=== PATIENT | male | born 1965 | race Caucasian/White ===

== ENCOUNTER 2019-10-01 06:57 | Outpatient (CLI) | payer BC, SELFPAY ==
[2019-10-01 07:14] LABS: Basophils Absolute Auto 0.06 K/mm3 (0.00-0.10); Basophils Percent Auto 0.8 % (0.0-1.0); Eosinophils Absolute Auto 0.41 K/mm3 (0.02-0.50); Eosinophils Percent Auto 5.8 % (1.0-6.0); Hematocrit 48.6 % (40.0-54.0); Hemoglobin 16.8 g/dL (14.0-18.0); Immature Granulocyte Absolute 0.04 K/mm3 (0.00-0.00); Immature Granulocyte Percent A 0.6 % (0.0-0.0); Lymphocytes Absolute Auto 1.87 K/mm3 (1.10-4.50); Lymphocytes Percent Auto 26.4 % (18.0-42.0); Mean Corpuscular HGB Conc 34.6 g/dL (32.0-36.0); Mean Corpuscular Hemoglobin 31.2 pg (27.0-31.0); Mean Corpuscular Volume 90.2 fL (78.0-102.0); Mean Platelet Volume 9.9 fl (8.7-11.0); Monocytes Absolute Auto 0.69 K/mm3 (0.10-0.90); Monocytes Percent Auto 9.8 % (2.0-11.0); Neutrophils Percent Auto 56.6 % (50.0-70.0); Platelet Count Result 209 K/mm3 (150-420); Red Blood Count 5.39 M/mm3 (4.70-6.10); Red Cell Distribution Width 12.8 % (11.6-14.4); White Blood Count 7.1 K/mm3 (4.8-10.8)
[2019-10-01 08:45] LABS: Alanine Aminotransferase 114 U/L (16-63); Albumin Level 3.9 g/dL (3.4-5.0); Alkaline Phosphatase 84 U/L (46-116); Anion Gap 11.5 mmol/L (7-16); Aspartate Amino Transferase 50 U/L (15-37); Bilirubin,Total 0.4 mg/dL (0.00-1.00); Blood Urea Nitrogen 21 mg/dL (7-18); Calcium 9.2 mg/dL (8.5-10.1); Carbon Dioxide 28 mmol/L (21-32); Chloride 105 mmol/L (98-108); Estimated Glomerular Filt Rate > 60; Glucose 154 mg/dL (70-99); Osmolality Calculated 296 mOsm/kg (285-295); Potassium 4.5 mmol/L (3.5-5.1); Sodium 140 mmol/L (136-145); Total Protein 7.3 g/dL (6.4-8.2); Uric Acid 7.8 mg/dL (3.5-7.2); Vitamin B12 482 pg/mL (193-986)
== END 2019-10-01 06:58 | disposition home or self-care (01) ==
LOC: CHSLAB 07:00
PROVIDERS: PCP Family Medicine; Visit Provider Family Medicine
DX: M10.9 Gout, unspecified (principal); E53.8 Deficiency of other specified B group vitamins; I10 Essential (primary) hypertension
CPT/HCPCS: 36415; 80053; 82607; 84550; 85025

== ENCOUNTER 2019-12-23 09:10 | Outpatient (CLI) | payer BC, SELFPAY ==
[2019-12-23 09:25] LABS: Basophils Absolute Auto 0.06 K/mm3 (0.00-0.10); Basophils Percent Auto 0.8 % (0.0-1.0); Eosinophils Absolute Auto 0.36 K/mm3 (0.02-0.50); Eosinophils Percent Auto 4.7 % (1.0-6.0); Hemoglobin 16.8 g/dL (14.0-18.0); Immature Granulocyte Absolute 0.04 K/mm3 (0.00-0.00); Immature Granulocyte Percent A 0.5 % (0.0-0.0); Lymphocytes Absolute Auto 1.83 K/mm3 (1.10-4.50); Lymphocytes Percent Auto 24.1 % (18.0-42.0); Mean Corpuscular HGB Conc 33.6 g/dL (32.0-36.0); Mean Corpuscular Hemoglobin 30.7 pg (27.0-31.0); Mean Corpuscular Volume 91.4 fL (78.0-102.0); Mean Platelet Volume 9.9 fl (8.7-11.0); Monocytes Absolute Auto 0.56 K/mm3 (0.10-0.90); Monocytes Percent Auto 7.4 % (2.0-11.0); Neutrophils Absolute Auto 4.8 K/mm3 (1.7-7.2); Neutrophils Percent Auto 62.5 % (50.0-70.0); Platelet Count Result 209 K/mm3 (150-420); Red Blood Count 5.47 M/mm3 (4.70-6.10); Red Cell Distribution Width 12.7 % (11.6-14.4); White Blood Count 7.6 K/mm3 (4.8-10.8)
[2019-12-23 09:37] LABS: Creatinine Urine 161.92 mg/dL (40-278); Microalbumin Urine Random < 13.0 mg/L
[2019-12-23 13:44] LABS: Anion Gap 8 mmol/L (8-16); Blood Urea Nitrogen 16 mg/dL (7-18); Calcium 9.1 mg/dL (8.5-10.1); Carbon Dioxide 28 mmol/L (21-32); Chloride 103 mmol/L (98-108); Estimated Glomerular Filt Rate > 60; Glucose 129 mg/dL (70-99); Osmolality Calculated 291 mOsm/kg (285-295); Potassium 4.8 mmol/L (3.5-5.1); Prostate Specific Antigen 1.2 ng/mL (< OR = 4.0); Sodium 139 mmol/L (136-145); Thyroid Stimulating Hormone 2.07 uIU/mL (0.36-3.74); Uric Acid 7.8 mg/dL (3.5-7.2)
== END 2019-12-23 09:11 | disposition home or self-care (01) ==
PROVIDERS: PCP Family Medicine; Visit Provider Family Medicine
DX: M10.9 Gout, unspecified (principal); I10 Essential (primary) hypertension; Z12.5 Encounter for screening for malignant neoplasm of prostate
CPT/HCPCS: 36415; 80048; 82043; 84153; 84443; 84550; 85025; G0103

== ENCOUNTER 2020-02-14 16:12 | Outpatient (CLI) | payer BC, SELFPAY ==
--- NOTE | ~2020-02-14 | CT_ITS ---
EXAMINATION: CT chest wo con DATE: 02/14/2020 16:42 INDICATION: Solitary pulmonary nodule f/u pulmonary nodule TECHNIQUE: Computed tomography (CT) of the chest was performed without intravenous contrast. Addition al 3D reconstructions utilizing coronal maximum intensity projection (MIP) were performed. Automated exposure control and iterative reconstruction technique were employed. The dose-length product was 61 7.15 mGy-cm. COMPARISON: 02/07/2019 and 04/02/2016 FINDINGS: Mild to moderate emphysema. No significant interval change in a diffuse pattern of mosaic attenuation with few scattered relatively lucent regions of likely air trapping and more widespread groundglass opacity and fine reticulonodular pattern. This includes numerous tiny nodules with perilymphatic dist ribution along the fissures and pleura. There are few scattered linear bands of discoid atelectasis/s carring. There is also diffuse bronchial wall thickening. No pleural effusion. Heart size is normal. Atherosclerotic coronary artery calcific calcification is. No pericardial effusion. Thoracic aorta is normal in caliber. Enlargement of the central pulmonary arteries consistent with pulmonary arterial hypertension. No significant interval change in chronic mild mediastinal lymphadenopathy. Diffuse hep atic steatosis. Chronic mild anterior wedging and Schmorl's nodes at multiple mid to lower thoracic v ertebral bodies. IMPRESSION: 1. Mild to moderate emphysema with stable appearance of superimposed diffuse lung disease with fine r eticulonodular pattern which would be consistent with provided history of sarcoidosis. 2. Stable appearance of chronic mild mediastinal lymphadenopathy also likely related to sarcoidosis. 3. Enlargement of the central pulmonary arteries consistent with pulmonary arterial hypertension. 4. Diffuse hepatic steatosis. Reviewed, dictated and finalized at location A. T SPECIALIST IMPRESSION: 1. Mild to moderate emphysema with stable appearance of superimposed diffuse hilda ng disease with fine reticulonodular pattern which would be consistent with pro vided history of sarcoidosis. 2. Stable appearance of chronic mild mediastinal lymphadenopathy also likely re lated to sarcoidosis. 3. Enlargement of the central pulmonary arteries consistent with pulmonary erick rial hypertension. 4. Diffuse hepatic steatosis.
== END 2020-02-14 16:13 | disposition home or self-care (01) ==
PROVIDERS: PCP Family Medicine; Visit Provider Internal Medicine Pulmonary Disease
DX: R91.1 Solitary pulmonary nodule (principal)
CPT/HCPCS: 71250

== ENCOUNTER 2020-04-16 11:25 | Outpatient (CLI) | payer BC, SELFPAY ==
--- NOTE | ~2020-04-16 | XR_ITS ---
EXAMINATION: XR knee RT 3V DATE: 04/16/2020 11:59 INDICATION: Right knee pain. TECHNIQUE: 3 views of right knee were obtained. COMPARISON: Right knee radiographs 11/15/2013 FINDINGS: Bone alignment is normal. No fracture. There is sclerosis in femoral diaphysis from old ins trumentation. There is mild tricompartmental osteoarthritis. There is a moderate-sized knee joint eff usion. IMPRESSION: 1. Mild right knee osteoarthritis. 2. Moderate-sized right knee joint effusion. Reviewed, dictated and finalized at location A. RAL PRE ARRANGEMENT COUNSELOR
[2020-04-16 11:39] LABS: Basophils Absolute Auto 0.04 K/mm3 (0.00-0.10); Basophils Percent Auto 0.4 % (0.0-1.0); Eosinophils Absolute Auto 0.31 K/mm3 (0.02-0.50); Eosinophils Percent Auto 3.2 % (1.0-6.0); Hematocrit 48.7 % (40.0-54.0); Hemoglobin 16.5 g/dL (14.0-18.0); Immature Granulocyte Absolute 0.05 K/mm3 (0.00-0.00); Immature Granulocyte Percent A 0.5 % (0.0-0.0); Lymphocytes Absolute Auto 1.57 K/mm3 (1.10-4.50); Mean Corpuscular HGB Conc 33.9 g/dL (32.0-36.0); Mean Corpuscular Hemoglobin 30.8 pg (27.0-31.0); Mean Corpuscular Volume 90.9 fL (78.0-102.0); Mean Platelet Volume 9.7 fl (8.7-11.0); Monocytes Absolute Auto 0.84 K/mm3 (0.10-0.90); Monocytes Percent Auto 8.6 % (2.0-11.0); Neutrophils Percent Auto 71.3 % (50.0-70.0); Platelet Count Result 242 K/mm3 (150-420); Red Blood Count 5.36 M/mm3 (4.70-6.10); Red Cell Distribution Width 13.1 % (11.6-14.4); White Blood Count 9.8 K/mm3 (4.8-10.8)
[2020-04-16 12:43] LABS: Anion Gap 9 mmol/L (8-16); Blood Urea Nitrogen 15 mg/dL (7-18); Calcium 8.9 mg/dL (8.5-10.1); Carbon Dioxide 29 mmol/L (21-32); Chloride 101 mmol/L (98-108); Estimated Glomerular Filt Rate > 60; Glucose 150 mg/dL (70-99); Osmolality Calculated 291 mOsm/kg (285-295); Potassium 4.4 mmol/L (3.5-5.1); Sodium 139 mmol/L (136-145); Uric Acid 6.6 mg/dL (3.5-7.2)
== END 2020-04-16 11:26 | disposition home or self-care (01) ==
LOC: CHSLAB 11:27
PROVIDERS: PCP Family Medicine; Visit Provider Family Medicine
DX: M25.561 Pain in right knee (principal)
CPT/HCPCS: 36415; 73562; 80048; 84550; 85025

== ENCOUNTER 2020-04-18 07:48 | Outpatient (RCR) | payer BC, SELFPAY ==
--- NOTE | 2020-04-18 07:32 | PTOPEVAL ---
Thank you for referring Vladimir Louis to [facility].? The patient is scheduled to be seen for therapy? __3__x/week for 12 visits. Please review, sign, date and return this plan of care RUTH. I agree with and certify that the following plan of care is medically necessary. Referring Physician Date Admitting Provider: Attending Provider: Kip Martel MD Referring Provider: *PT Outpatient Evaluation Start: 04/18/20 06:59 Freq: Status: Active Protocol: Document 04/18/20 06:59 DILAN (Rec: 04/18/20 07:32 DILAN [email or web address]) Therapy Assessment Status Assessment Status Assessment Status Evaluation Evaluation Information Problem Diagnosis right knee pain Onset 04/12/20 Subjective Information Pt. reports that he slipped on Query Text:As Reported By Patient/ the ice last week and twisted Family his knee. He states that he developed immediate pain in the knee. He reports that he waited till Thursday to see the doctor. He states that he did receive some prednisone which has helped to reduce his pain . He states that he has improved since using the medication. He describes pain in the front of the right knee. He states that pain is most notable with movement. He reports that he has some pain at night that will wake him. He reports that his goal is to reduce his right knee pain. 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
== END 2020-05-01 08:59 | disposition home or self-care (01) ==
LOC: CHSPT 07:48
PROVIDERS: PCP Family Medicine; Visit Provider Family Medicine
DX: M25.561 Pain in right knee (principal)
CPT/HCPCS: 97014; 97110; 97140; 97161; G0283

== ENCOUNTER 2020-09-29 09:54 | Outpatient (CLI) | payer BC, SELFPAY ==
[2020-09-29 10:11] LABS: Basophils Absolute Auto 0.06 K/mm3 (0.00-0.10); Basophils Percent Auto 0.8 % (0.0-1.0); Eosinophils Absolute Auto 0.32 K/mm3 (0.02-0.50); Eosinophils Percent Auto 4.2 % (1.0-6.0); Hematocrit 49.2 % (40.0-54.0); Hemoglobin 17.2 g/dL (14.0-18.0); Immature Granulocyte Absolute 0.04 K/mm3 (0.00-0.00); Immature Granulocyte Percent A 0.5 % (0.0-0.0); Lymphocytes Absolute Auto 1.41 K/mm3 (1.10-4.50); Lymphocytes Percent Auto 18.3 % (18.0-42.0); Mean Corpuscular Hemoglobin 30.9 pg (27.0-31.0); Mean Corpuscular Volume 88.5 fL (78.0-102.0); Mean Platelet Volume 10.2 fl (8.7-11.0); Monocytes Absolute Auto 0.53 K/mm3 (0.10-0.90); Monocytes Percent Auto 6.9 % (2.0-11.0); Neutrophils Absolute Auto 5.4 K/mm3 (1.7-7.2); Neutrophils Percent Auto 69.3 % (50.0-70.0); Platelet Count Result 216 K/mm3 (150-420); Red Blood Count 5.56 M/mm3 (4.70-6.10); Red Cell Distribution Width 12.1 % (11.6-14.4); White Blood Count 7.7 K/mm3 (4.8-10.8)
[2020-09-29 10:12] LABS: Add Urine Microscopic? YES; Appearance Urine Clear (Clear); Bilirubin Urine Negative (Negative); Blood Urine Negative (Negative); Color Urine Light Yellow (Yellow); Glucose Urine UA 1+ (Negative); Ketones Urine Negative (Negative); Leukocyte Esterase Ur Negative (Negative); Nitrate Urine Negative (Negative); Protein Urine Trace (Negative); Specific Grav Ur 1.025 (1.010-1.020); Urobilinogen Urine 0.2 mg/dL (0.2-1.0)
[2020-09-29 10:17] LABS: Bacteria Urine None seen /hpf; Mucus Urine Few /lpf; RBC Urine None seen /hpf (0-2); Squamous Epithelial Cell Urine Rare /hpf (Few); WBC Urine None seen /hpf (0-3)
[2020-09-29 10:21] LABS: Microalbumin Urine Random 79.2 mg/L
[2020-09-29 10:22] LABS: Hemoglobin A1C 7.3 % (<5.7)
[2020-09-29 11:00] LABS: Alanine Aminotransferase 93 U/L (16-63); Albumin Level 3.9 g/dL (3.4-5.0); Alkaline Phosphatase 91 U/L (46-116); Anion Gap 9 mmol/L (8-16); Aspartate Amino Transferase 45 U/L (15-37); Bilirubin,Total 0.5 mg/dL (0.00-1.00); Blood Urea Nitrogen 18 mg/dL (7-18); Calcium 8.8 mg/dL (8.5-10.1); Carbon Dioxide 31 mmol/L (21-32); Chloride 104 mmol/L (98-108); Estimated Glomerular Filt Rate > 60; Glucose 159 mg/dL (70-99); Osmolality Calculated 302 mOsm/kg (285-295); Potassium 4.4 mmol/L (3.5-5.1); Sodium 144 mmol/L (136-145); Thyroid Stimulating Hormone 1.57 uIU/mL (0.36-3.74); Total Protein 7.2 g/dL (6.4-8.2); Uric Acid 8.4 mg/dL (3.5-7.2)
== END 2020-09-29 09:55 | disposition home or self-care (01) ==
LOC: CHSLAB 09:56
PROVIDERS: PCP Family Medicine; Visit Provider Family Medicine
DX: E13.42 Other specified diabetes mellitus with diabetic polyneuropathy (principal); I10 Essential (primary) hypertension; J44.1 Chronic obstructive pulmonary disease with (acute) exacerbation; M10.9 Gout, unspecified
CPT/HCPCS: 36415; 80053; 81001; 82043; 83036; 84443; 84550; 85025

== ENCOUNTER 2021-02-08 12:46 | Outpatient (CLI) | payer BC, SELFPAY ==
--- NOTE | ~2021-02-08 | CT_ITS ---
EXAMINATION: CT diagnostic chest wo con DATE: 02/08/2021 13:26 INDICATION: Pulmonary infiltrates. History of tobacco use. Sarcoidosis. TECHNIQUE: Computed tomography (CT) of the chest was performed without intravenous contrast. The dose -length product was 616.95 mGy-cm. Automated exposure control and iterative reconstruction technique were employed. COMPARISON: CT dated 02/14/2020 and 02/07/2019 FINDINGS: There is mediastinal and right hilar lymphadenopathy. Heart size normal. Enlarged pulmonary arteries consistent with pulmonary arterial hypertension. No significant pleural or pericardial effu alaina. Fatty infiltration of the liver. Thyroid gland is unremarkable. There is chronic interstitial l svetlana disease with focal consolidation in the right upper lobe which is not significantly changed from prior examination. There are diffuse miliary nodules in both lungs. Interstitial changes have progres sed since prior examination. No endobronchial lesions. Chronic mild anterior wedging of multiple mid and lower thoracic vertebral bodies. No acute osseous abnormality. No evidence for aortic aneurysm or dissection. No pneumothorax. IMPRESSION: 1. No significant change to chronic interstitial lung disease as well as mediastinal/right hilar lymp hadenopathy, compatible with known sarcoidosis. 2: Enlarged pulmonary arteries, consistent with pulmonary arterial hypertension. Reviewed, dictated and finalized at location A. RMATORY ATTENDANT IMPRESSION: 1. No significant change to chronic interstitial lung disease as well as medias tinal/right hilar lymphadenopathy, compatible with known sarcoidosis. 2: Enlarged pulmonary arteries, consistent with pulmonary arterial hypertension .
== END 2021-02-08 12:47 | disposition home or self-care (01) ==
LOC: CHSIMG 12:48
PROVIDERS: PCP Family Medicine; Visit Provider Internal Medicine Pulmonary Disease
DX: J84.9 Interstitial pulmonary disease, unspecified (principal); D86.0 Sarcoidosis of lung; R91.1 Solitary pulmonary nodule
CPT/HCPCS: 71250

== ENCOUNTER 2021-03-08 07:28 | Outpatient (CLI) | payer BC, SELFPAY ==
[2021-03-08 07:47] LABS: Basophils Absolute Auto 0.07 K/mm3 (0.00-0.10); Eosinophils Absolute Auto 0.37 K/mm3 (0.02-0.50); Eosinophils Percent Auto 5.1 % (1.0-6.0); Hematocrit 50.7 % (40.0-54.0); Immature Granulocyte Absolute 0.03 K/mm3 (0.00-0.00); Immature Granulocyte Percent A 0.4 % (0.0-0.0); Lymphocytes Absolute Auto 1.61 K/mm3 (1.10-4.50); Lymphocytes Percent Auto 22.2 % (18.0-42.0); Mean Corpuscular HGB Conc 33.5 g/dL (32.0-36.0); Mean Corpuscular Hemoglobin 30.9 pg (27.0-31.0); Monocytes Absolute Auto 0.63 K/mm3 (0.10-0.90); Monocytes Percent Auto 8.7 % (2.0-11.0); Neutrophils Absolute Auto 4.5 K/mm3 (1.7-7.2); Neutrophils Percent Auto 62.6 % (50.0-70.0); Platelet Count Result 218 K/mm3 (150-420); Red Blood Count 5.51 M/mm3 (4.70-6.10); Red Cell Distribution Width 12.4 % (11.6-14.4); White Blood Count 7.2 K/mm3 (4.8-10.8)
[2021-03-08 08:01] LABS: Hemoglobin A1C 7.5 % (<5.7)
[2021-03-08 09:06] LABS: Alanine Aminotransferase 92 U/L (16-63); Albumin Level 3.8 g/dL (3.4-5.0); Alkaline Phosphatase 89 U/L (46-116); Anion Gap 12 mmol/L (8-16); Aspartate Amino Transferase 43 U/L (15-37); Bilirubin,Total 0.5 mg/dL (0.00-1.00); Blood Urea Nitrogen 17 mg/dL (7-18); Calcium 8.7 mg/dL (8.5-10.1); Carbon Dioxide 26 mmol/L (21-32); Chloride 104 mmol/L (98-108); Estimated Glomerular Filt Rate > 60; Folic Acid 10.3 ng/mL (8.6->20); Glucose 146 mg/dL (70-99); Iron 77 ug/dL (65-175); Osmolality Calculated 298 mOsm/kg (285-295); Percent Iron Saturation 25 % (12-57); Potassium 4.7 mmol/L (3.5-5.1); Sodium 142 mmol/L (136-145); Total Protein 7.1 g/dL (6.4-8.2); Uric Acid 7.8 mg/dL (3.5-7.2); Vitamin B12 469 pg/mL (193-986)
== END 2021-03-08 07:29 | disposition home or self-care (01) ==
LOC: CHSLAB 07:32
PROVIDERS: PCP Family Medicine
DX: R20.0 Anesthesia of skin (principal); R20.2 Paresthesia of skin; E13.42 Other specified diabetes mellitus with diabetic polyneuropathy; M10.9 Gout, unspecified
CPT/HCPCS: 36415; 80053; 82607; 82746; 83036; 83540; 83550; 84550; 85025

== ENCOUNTER 2021-08-29 15:48 | Outpatient (CLI) | payer BC, SELFPAY ==
--- NOTE | ~2021-08-29 | XR_ITS ---
XR elbow RT min 3V DATE: 08/29/2021 16:08 INDICATION: Right elbow pain following injury one day ago TECHNIQUE: 5 views COMPARISON: None FINDINGS: Mild dorsal olecranon process spurring. No fracture or dislocation, periosteal reaction or bone destruction is detected. There is elevation of the anterior and posterior fat pads. IMPRESSION: Elbow joint effusion; no evidence of fracture or dislocation. Mild dorsal olecranon process spurring Reviewed, dictated and finalized at location A.
== END 2021-08-29 15:49 | disposition home or self-care (01) ==
LOC: CHSIMG 15:50
PROVIDERS: PCP Family Medicine; Visit Provider Family Medicine
DX: M25.521 Pain in right elbow (principal)
CPT/HCPCS: 73080

== ENCOUNTER 2021-09-04 13:47 | Outpatient (CLI) | payer OTHER, SELFPAY ==
--- NOTE | ~2021-09-04 | XR_ITS ---
XR elbow RT min 3V DATE: 09/04/2021 14:17 INDICATION: Right elbow pain when lifting pain since injury August 28, 2021 TECHNIQUE: 4 views COMPARISON: 08/29/2021 right elbow FINDINGS: There is mild dorsal olecranon process spurring. No fracture or dislocation or joint effusion. No periosteal reaction or bone destruction. IMPRESSION: Resolution of multiple joint effusion since 08/29/2021 Reviewed, dictated and finalized at location A.
== END 2021-09-04 13:48 | disposition home or self-care (01) ==
LOC: CHSIMG 13:51
PROVIDERS: PCP Family Medicine; Visit Provider Family Medicine
DX: M25.521 Pain in right elbow (principal)
CPT/HCPCS: 73080

== ENCOUNTER 2021-12-24 07:24 | Outpatient (CLI) | payer BC, SELFPAY ==
[2021-12-24 07:40] LABS: Basophils Absolute Auto 0.07 K/mm3 (0.00-0.10); Basophils Percent Auto 0.8 % (0.0-1.0); Eosinophils Absolute Auto 0.36 K/mm3 (0.02-0.50); Eosinophils Percent Auto 4.3 % (1.0-6.0); Hematocrit 49.7 % (40.0-54.0); Immature Granulocyte Absolute 0.04 K/mm3 (0.00-0.00); Immature Granulocyte Percent A 0.5 % (0.0-0.0); Lymphocytes Absolute Auto 2.04 K/mm3 (1.10-4.50); Lymphocytes Percent Auto 24.3 % (18.0-42.0); Mean Corpuscular HGB Conc 34.2 g/dL (32.0-36.0); Mean Corpuscular Hemoglobin 30.6 pg (27.0-31.0); Mean Corpuscular Volume 89.5 fL (78.0-102.0); Mean Platelet Volume 10.3 fl (8.7-11.0); Monocytes Absolute Auto 0.63 K/mm3 (0.10-0.90); Monocytes Percent Auto 7.5 % (2.0-11.0); Neutrophils Absolute Auto 5.3 K/mm3 (1.7-7.2); Neutrophils Percent Auto 62.6 % (50.0-70.0); Platelet Count Result 222 K/mm3 (150-420); Red Blood Count 5.55 M/mm3 (4.70-6.10); Red Cell Distribution Width 12.4 % (11.6-14.4); White Blood Count 8.4 K/mm3 (4.8-10.8)
[2021-12-24 07:52] LABS: Creatinine Urine 148.14 mg/dL (40-278); MALB Creatinine Ratio 30.3 mg/g (0-30); Microalbumin Urine Random 44.9 mg/L
[2021-12-24 07:54] LABS: Hemoglobin A1C 8.6 % (<5.7)
[2021-12-24 08:16] LABS: Alanine Aminotransferase 95 U/L (16-63); Albumin Level 3.8 g/dL (3.4-5.0); Alkaline Phosphatase 92 U/L (46-116); Anion Gap 5 mmol/L (8-16); Aspartate Amino Transferase 46 U/L (15-37); Bilirubin,Total 0.5 mg/dL (0.00-1.00); Blood Urea Nitrogen 12 mg/dL (7-18); Calcium 8.5 mg/dL (8.5-10.1); Carbon Dioxide 31 mmol/L (21-32); Chloride 103 mmol/L (98-108); Estimated Glomerular Filt Rate > 60; Glucose 191 mg/dL (70-99); Osmolality Calculated 292 mOsm/kg (285-295); Potassium 4.6 mmol/L (3.5-5.1); Sodium 139 mmol/L (136-145); Total Protein 7.1 g/dL (6.4-8.2)
== END 2021-12-24 07:25 | disposition home or self-care (01) ==
LOC: CHSLAB 07:28
PROVIDERS: PCP Family Medicine; Visit Provider Family Medicine
DX: E11.9 Type 2 diabetes mellitus without complications (principal)
CPT/HCPCS: 36415; 80053; 82043; 83036; 85025

== ENCOUNTER 2022-01-03 14:36 | Outpatient (CLI) | payer BC, SELFPAY ==
--- NOTE | ~2022-01-03 | XR_ITS ---
EXAMINATION: XR chest 2V DATE: 01/03/2022 15:00 INDICATION: Acute cough. TECHNIQUE: Frontal and lateral views of the chest were obtained. COMPARISON: Chest single view 12/31/2017, chest CT 01/08/2021 FINDINGS: The lung volumes are normal. There is a chronic diffuse interstitial pattern in the lungs. No pleural effusion or pneumothorax. The heart size is normal. The central pulmonary arteries are enl arged, consistent with pulmonary arterial hypertension. IMPRESSION: 1. Stable chronic interstitial lung disease. Reviewed, dictated and finalized at location A.
[2022-01-03 14:48] LABS: Basophils Absolute Auto 0.04 K/mm3 (0.00-0.10); Basophils Percent Auto 0.6 % (0.0-1.0); Eosinophils Absolute Auto 0.25 K/mm3 (0.02-0.50); Hematocrit 46.7 % (40.0-54.0); Immature Granulocyte Absolute 0.02 K/mm3 (0.00-0.00); Immature Granulocyte Percent A 0.3 % (0.0-0.0); Lymphocytes Absolute Auto 1.99 K/mm3 (1.10-4.50); Lymphocytes Percent Auto 31.5 % (18.0-42.0); Mean Corpuscular HGB Conc 34.3 g/dL (32.0-36.0); Mean Corpuscular Hemoglobin 30.5 pg (27.0-31.0); Mean Corpuscular Volume 89.1 fL (78.0-102.0); Mean Platelet Volume 10.3 fl (8.7-11.0); Monocytes Absolute Auto 0.65 K/mm3 (0.10-0.90); Monocytes Percent Auto 10.3 % (2.0-11.0); Neutrophils Absolute Auto 3.4 K/mm3 (1.7-7.2); Neutrophils Percent Auto 53.3 % (50.0-70.0); Platelet Count Result 175 K/mm3 (150-420); Red Blood Count 5.24 M/mm3 (4.70-6.10); Red Cell Distribution Width 12.6 % (11.6-14.4); White Blood Count 6.3 K/mm3 (4.8-10.8)
[2022-01-03 15:28] LABS: Anion Gap 7 mmol/L (8-16); Blood Urea Nitrogen 17 mg/dL (7-18); Calcium 8.7 mg/dL (8.5-10.1); Carbon Dioxide 30 mmol/L (21-32); Chloride 102 mmol/L (98-108); Creatine Kinase 107 U/L (39-308); Estimated Glomerular Filt Rate > 60; Glucose 117 mg/dL (70-99); Osmolality Calculated 290 mOsm/kg (285-295); Potassium 4.1 mmol/L (3.5-5.1); Sodium 139 mmol/L (136-145)
== END 2022-01-03 14:37 | disposition home or self-care (01) ==
LOC: CHSLAB 14:38
PROVIDERS: PCP Family Medicine; Visit Provider Family Medicine
DX: R07.9 Chest pain, unspecified (principal); R05.1 Acute cough
CPT/HCPCS: 36415; 71046; 80048; 82550; 82553; 84484; 85025; 85380

== ENCOUNTER 2022-02-07 08:31 | Outpatient (CLI) | payer BC, SELFPAY ==
--- NOTE | ~2022-02-07 | CT_ITS ---
EXAMINATION:CT diagnostic chest wo con DATE: 02/07/2022 08:53 INDICATION: Solitary pulmonary nodule. TECHNIQUE: Computed tomography (CT) of the chest was performed without intravenous contrast. Automate d exposure control and iterative reconstruction technique were employed. The dose-length product (DLP ) was 596.94 mGy-cm. COMPARISON: Chest CT 02/08/2021 FINDINGS: There is widespread septal thickening in the lungs with architectural distortion. There are widespread chronic groundglass opacities in the lungs with areas of subsegmental sparing. There is m ild emphysema. There is mild bronchiectasis in the lungs. No honeycombing. The chronic interstitial l svetlana disease has a mid and upper lung predominance. No pleural effusion. The heart size is normal. The re are coronary artery calcifications. The central pulmonary arteries are enlarged, consistent with p ulmonary arterial hypertension. There is chronic mild mediastinal lymphadenopathy, likely reactive. T here is mild bilateral gynecomastia. There is diffuse hepatic steatosis. There is mild thoracic spond ylosis. IMPRESSION: 1. Stable diffuse lung disease, likely a combination of mild emphysema and chronic interstitial lung disease such as sarcoid or chronic hypersensitivity pneumonitis. Reviewed, dictated and finalized at location A. LINING DIPPER IMPRESSION: 1. Stable diffuse lung disease, likely a combination of mild emphysema and well logging captain mud analysis lilian interstitial lung disease such as sarcoid or chronic hypersensitivity pneum onitis.
== END 2022-02-07 08:32 | disposition home or self-care (01) ==
LOC: CHSIMG 08:33
PROVIDERS: PCP Family Medicine; Visit Provider Internal Medicine Pulmonary Disease
DX: R91.1 Solitary pulmonary nodule (principal)
CPT/HCPCS: 71250

== ENCOUNTER 2022-03-28 13:38 | Outpatient (CLI) | payer BC, SELFPAY ==
--- NOTE | 2022-03-28 13:52 | ECHO_ITS ---
Patient Info Name: Vladimir Louis Age: 56 years : 1965 Gender: Male Ht: 69 in Wt: 238 lbs BSA: 2.33 m2 HR: 86 bpm BP: 156 / 90 mmHg Technical Quality: Fair Exam Date: 03/28/2022 2:03 PM Exam Location: [facility] Patient Status: Outpatient Admit Date: 03/28/2022 Staff Ordering Physician: Kwaku Manjarrez DO Accelerator Systems Director: Chase Herrera RDCS, RT Attending Provider: Kwaku Manjarrez DO Referring Physician: Loki BROOKS; Exam Type: CA echo dop color flow w con Study Info Indications I50.9 - Heart failure, unspecified Complete two-dimensional, color flow and Doppler transthoracic echocardiogram is performed with contrast to opacify the left ventricle and to improve the deliniation of the left ventricle endocardial borders. Summary 1. Left ventricular chamber dimension is normal. 2. Definity contrast administered improved wall motion interpretation. 3. Left ventricular systolic function is normal, estimated at 60-65%. 4. There is mildly increased left ventricular wall thickness. 5. Left ventricular septal wall motion is abnormal with septal motion related to bundle branch block. 6. The left ventricular diastolic function is grade I diastolic dysfunction. 7. E/e' 7 is not elevated. 8. Right ventricular systolic function is severely reduced. 9. Right ventricular chamber dimension is moderately enlarged. 10. There is mild aortic valve sclerosis. 11. There is moderate tricuspid valve regurgitation. 12. Severe pulmonary hypertension, estimated pulmonary arterial systolic pressure is 85 mmHg. 13. There is trace pulmonic regurgitation. 14. Normal inferior vena cava with <50% collapse upon inspiration consistent with elevated right atrial pressure, 10 mmHg. Left Ventricle E/e' 7 is not elevated. Definity contrast administered improved wall motion interpretation. Left ventricular chamber dimension is normal. Left ventricular systolic function is normal, estimated at 60-65%. There is mildly increased left ventricular wall thickness. Left ventricular septal wall motion is abnormal with septal motion related to bundle branch block. The left ventricular diastolic function is grade I diastolic dysfunction. Right Ventricle Right ventricular systolic function is severely reduced. Right ventricular chamber dimension is moderately enlarged. Left Atria Left atrial chamber dimension is normal. Right Atria Right atrial chamber dimension is moderately enlarged. Aortic Valve The aortic valve is trileaflet. There is mild aortic valve sclerosis. There is no aortic valve stenosis. There is no aortic valve regurgitation. Pulmonic Valve There is trace pulmonic regurgitation. Mitral Valve There is no mitral valve stenosis. There is no mitral valve regurgitation. Tricuspid Valve There is moderate tricuspid valve regurgitation. Severe pulmonary hypertension, estimated pulmonary arterial systolic pressure is 85 mmHg. Pericardium/Pleural There is no pericardial effusion. Inferior Vena Cava Normal inferior vena cava with <50% collapse upon inspiration consistent with elevated right atrial pressure, 10 mmHg. Aorta The aortic root size at the sinus of Valsalva is normal. Left Ventricular Outflow Tract Name Value Normal LVOT 2D
[2022-03-28] MEDS: PERFLUTREN LIPID MICROSPHERES 1.5 ML VIAL DILUTED TO 10 ML TOTAL VOLUME IV PUSH (14:30)
== END 2022-03-28 13:39 | disposition home or self-care (01) ==
PROVIDERS: PCP Family Medicine; Visit Provider Internal Medicine Cardiovascular Disease
DX: I50.22 Chronic systolic (congestive) heart failure (principal); I08.3 Combined rheumatic disorders of mitral, aortic and tricuspid valves
CPT/HCPCS: C8929; Q9957

== ENCOUNTER 2022-03-29 08:15 | Outpatient (CLI) | payer BC, SELFPAY ==
[2022-03-29 08:31] LABS: Basophils Absolute Auto 0.07 K/mm3 (0.00-0.10); Basophils Percent Auto 1.1 % (0.0-1.0); Eosinophils Absolute Auto 0.25 K/mm3 (0.02-0.50); Eosinophils Percent Auto 3.8 % (1.0-6.0); Hematocrit 46.6 % (40.0-54.0); Hemoglobin 15.9 g/dL (14.0-18.0); Immature Granulocyte Absolute 0.02 K/mm3 (0.00-0.00); Immature Granulocyte Percent A 0.3 % (0.0-0.0); Lymphocytes Absolute Auto 1.91 K/mm3 (1.10-4.50); Lymphocytes Percent Auto 28.9 % (18.0-42.0); Mean Corpuscular HGB Conc 34.1 g/dL (32.0-36.0); Mean Corpuscular Hemoglobin 30.8 pg (27.0-31.0); Mean Corpuscular Volume 90.3 fL (78.0-102.0); Mean Platelet Volume 10.3 fl (8.7-11.0); Monocytes Absolute Auto 0.43 K/mm3 (0.10-0.90); Monocytes Percent Auto 6.5 % (2.0-11.0); Neutrophils Absolute Auto 3.9 K/mm3 (1.7-7.2); Neutrophils Percent Auto 59.4 % (50.0-70.0); Platelet Count Result 195 K/mm3 (150-420); Red Blood Count 5.16 M/mm3 (4.70-6.10); Red Cell Distribution Width 12.8 % (11.6-14.4); White Blood Count 6.6 K/mm3 (4.8-10.8)
[2022-03-29 08:38] LABS: Hemoglobin A1C 8.7 % (<5.7)
[2022-03-29 09:04] LABS: Anion Gap 5 mmol/L (8-16); Blood Urea Nitrogen 16 mg/dL (7-18); Calcium 8.3 mg/dL (8.5-10.1); Carbon Dioxide 30 mmol/L (21-32); Chloride 101 mmol/L (98-108); Cholesterol 166 mg/dL (0-200); Estimated Glomerular Filt Rate > 60; Glucose 153 mg/dL (70-99); HDL Direct 34 mg/dL (40-60); LDL Cholesterol Calculated 118 mg/dL (<130); Osmolality Calculated 286 mOsm/kg (285-295); Potassium 4.3 mmol/L (3.5-5.1); Sodium 136 mmol/L (136-145); Thyroid Stimulating Hormone 1.26 uIU/mL (0.36-3.74); Triglycerides 72 mg/dL (0-150)
== END 2022-03-29 08:16 | disposition home or self-care (01) ==
LOC: CHSLAB 08:17
PROVIDERS: PCP Family Medicine; Visit Provider Family Medicine
DX: E11.9 Type 2 diabetes mellitus without complications (principal); E78.2 Mixed hyperlipidemia
CPT/HCPCS: 36415; 80048; 80061; 83036; 84443; 85025

== ENCOUNTER 2022-09-04 11:27 | Outpatient (CLI) | payer BC, SELFPAY ==
[2022-09-04 11:52] LABS: Basophils Absolute Auto 0.07 K/mm3 (0.00-0.10); Basophils Percent Auto 0.9 % (0.0-1.0); Eosinophils Absolute Auto 0.26 K/mm3 (0.02-0.50); Eosinophils Percent Auto 3.3 % (1.0-6.0); Immature Granulocyte Absolute 0.04 K/mm3 (0.00-0.00); Immature Granulocyte Percent A 0.5 % (0.0-0.0); Lymphocytes Absolute Auto 1.75 K/mm3 (1.10-4.50); Lymphocytes Percent Auto 22.1 % (18.0-42.0); Mean Corpuscular HGB Conc 34.8 g/dL (32.0-36.0); Mean Corpuscular Hemoglobin 31.1 pg (27.0-31.0); Mean Corpuscular Volume 89.3 fL (78.0-102.0); Mean Platelet Volume 10.5 fl (8.7-11.0); Monocytes Absolute Auto 0.61 K/mm3 (0.10-0.90); Monocytes Percent Auto 7.7 % (2.0-11.0); Neutrophils Absolute Auto 5.2 K/mm3 (1.7-7.2); Neutrophils Percent Auto 65.5 % (50.0-70.0); Platelet Count Result 214 K/mm3 (150-420); Red Blood Count 5.15 M/mm3 (4.70-6.10); Red Cell Distribution Width 12.8 % (11.6-14.4); White Blood Count 7.9 K/mm3 (4.8-10.8)
[2022-09-04 12:31] LABS: Alanine Aminotransferase 120 U/L (16-63); Albumin Level 3.9 g/dL (3.4-5.0); Alkaline Phosphatase 86 U/L (46-116); Anion Gap 9 mmol/L (8-16); Aspartate Amino Transferase 61 U/L (15-37); Bilirubin,Total 0.9 mg/dL (0.00-1.00); Blood Urea Nitrogen 19 mg/dL (7-18); Calcium 9.1 mg/dL (8.5-10.1); Carbon Dioxide 29 mmol/L (21-32); Chloride 101 mmol/L (98-108); Estimated Glomerular Filt Rate > 60; Glucose 164 mg/dL (70-99); Osmolality Calculated 294 mOsm/kg (285-295); Potassium 4.2 mmol/L (3.5-5.1); Prostate Specific Antigen 1.4 ng/mL (< OR = 4.0); Sodium 139 mmol/L (136-145); Total Protein 7.1 g/dL (6.4-8.2)
== END 2022-09-04 11:28 | disposition home or self-care (01) ==
LOC: CHSLAB 11:30
PROVIDERS: PCP Family Medicine; Visit Provider Family Medicine
DX: E11.9 Type 2 diabetes mellitus without complications (principal); I10 Essential (primary) hypertension; Z12.5 Encounter for screening for malignant neoplasm of prostate
CPT/HCPCS: 36415; 80053; 83036; 84153; 85025; G0103

== ENCOUNTER 2022-12-23 07:36 | Outpatient (CLI) | payer BC, SELFPAY ==
[2022-12-23 08:33] LABS: Anion Gap 9 mmol/L (8-16); Blood Urea Nitrogen 12 mg/dL (7-18); Calcium 9.4 mg/dL (8.5-10.1); Carbon Dioxide 30 mmol/L (21-32); Chloride 97 mmol/L (98-108); Estimated Glomerular Filt Rate > 60; Glucose 285 mg/dL (70-99); Osmolality Calculated 291 mOsm/kg (285-295); Potassium 4.6 mmol/L (3.5-5.1); Sodium 136 mmol/L (136-145)
[2022-12-23 09:08] LABS: Hemoglobin A1C 13.4 % (<5.7)
== END 2022-12-23 07:37 | disposition home or self-care (01) ==
LOC: CHSLAB 07:38
PROVIDERS: PCP Family Medicine; Visit Provider Family Medicine
DX: E11.9 Type 2 diabetes mellitus without complications (principal)
CPT/HCPCS: 36415; 80048; 83036

== ENCOUNTER 2023-02-06 09:52 | Outpatient (CLI) | payer BC, SELFPAY ==
--- NOTE | ~2023-02-06 | CT_ITS ---
EXAMINATION: CT diagnostic chest wo con DATE: 02/06/2023 10:13 INDICATION: Solitary pulmonary nodule TECHNIQUE: Computed tomography (CT) of the chest was performed without intravenous contrast. The dose -length product (DLP) was 262.65 mGy-cm. Automated exposure control and iterative reconstruction tech [employer] were employed. COMPARISON: 02/07/2022 FINDINGS: There is mild emphysema. Again noted are widespread septal thickening of the lungs and arch itectural distortion. No suspicious pulmonary nodules are identified. No pleural effusion or pneumoth orax. The heart size is normal. There is chronic mild mediastinal lymphadenopathy, likely reactive. T here is enlargement of the main and central pulmonary arteries, consistent with pulmonary hypertensio n. Bilateral gynecomastia is noted. There is mild thoracic spondylosis. The liver is diffusely low in attenuation when compared with the spleen, consistent with hepatic steatosis. IMPRESSION: 1. Stable diffuse lung disease with differential as previously described including emphysema and wash plant operator lilian interstitial lung disease such as sarcoidosis or chronic hypersensitivity pneumonitis. Reviewed, dictated and finalized at location F. LDER PAD MOLDER IMPRESSION: 1. Stable diffuse lung disease with differential as previously described includ ing emphysema and chronic interstitial lung disease such as sarcoidosis or wash plant operator lilian hypersensitivity pneumonitis.
== END 2023-02-06 09:53 | disposition home or self-care (01) ==
LOC: CHSIMG 09:53
PROVIDERS: PCP Family Medicine; Visit Provider Internal Medicine Pulmonary Disease
DX: R91.1 Solitary pulmonary nodule (principal); J98.4 Other disorders of lung
CPT/HCPCS: 71250

== ENCOUNTER 2023-03-23 16:22 | Outpatient (CLI) | payer BC, SELFPAY ==
[2023-03-23 16:37] LABS: Basophils Percent Auto 1.1 % (0.0-1.0); Eosinophils Absolute Auto 0.31 K/mm3 (0.02-0.50); Eosinophils Percent Auto 3.5 % (1.0-6.0); Hematocrit 48.3 % (40.0-54.0); Hemoglobin 16.7 g/dL (14.0-18.0); Immature Granulocyte Absolute 0.08 K/mm3 (0.00-0.00); Immature Granulocyte Percent A 0.9 % (0.0-0.0); Lymphocytes Absolute Auto 2.17 K/mm3 (1.10-4.50); Lymphocytes Percent Auto 24.2 % (18.0-42.0); Mean Corpuscular HGB Conc 34.6 g/dL (32.0-36.0); Mean Corpuscular Hemoglobin 30.5 pg (27.0-31.0); Mean Corpuscular Volume 88.3 fL (78.0-102.0); Mean Platelet Volume 10.6 fl (8.7-11.0); Monocytes Absolute Auto 0.59 K/mm3 (0.10-0.90); Monocytes Percent Auto 6.6 % (2.0-11.0); Neutrophils Absolute Auto 5.7 K/mm3 (1.7-7.2); Neutrophils Percent Auto 63.7 % (50.0-70.0); Platelet Count Result 232 K/mm3 (150-420); Red Blood Count 5.47 M/mm3 (4.70-6.10); Red Cell Distribution Width 12.4 % (11.6-14.4)
[2023-03-23 17:35] LABS: Hemoglobin A1C > 13.7 % (<5.7)
[2023-03-23 17:41] LABS: Alanine Aminotransferase 78 U/L (16-63); Alkaline Phosphatase 93 U/L (46-116); Anion Gap 7 mmol/L (8-16); Aspartate Amino Transferase 27 U/L (15-37); Bilirubin,Total 0.5 mg/dL (0.00-1.00); Blood Urea Nitrogen 17 mg/dL (7-18); Calcium 9.8 mg/dL (8.5-10.1); Carbon Dioxide 31 mmol/L (21-32); Chloride 98 mmol/L (98-108); Estimated Glomerular Filt Rate > 60; Glucose 377 mg/dL (70-99); Osmolality Calculated 298 mOsm/kg (285-295); Potassium 4.5 mmol/L (3.5-5.1); Sodium 136 mmol/L (136-145); Total Protein 7.1 g/dL (6.4-8.2)
== END 2023-03-23 16:23 | disposition home or self-care (01) ==
LOC: CHSLAB 16:27
PROVIDERS: PCP Family Medicine; Visit Provider Family Medicine
DX: E11.9 Type 2 diabetes mellitus without complications (principal)
CPT/HCPCS: 36415; 80053; 83036; 85025

== ENCOUNTER 2023-06-29 15:25 | Outpatient (CLI) | payer BC, SELFPAY ==
[2023-06-29 15:50] LABS: Basophils Absolute Auto 0.06 K/mm3 (0.00-0.10); Basophils Percent Auto 0.6 % (0.0-1.0); Eosinophils Absolute Auto 0.28 K/mm3 (0.02-0.50); Eosinophils Percent Auto 2.8 % (1.0-6.0); Lymphocytes Absolute Auto 2.27 K/mm3 (1.10-4.50); Lymphocytes Percent Auto 22.9 % (18.0-42.0); Mean Corpuscular HGB Conc 35.6 g/dL (32-36); Mean Corpuscular Hemoglobin 30.9 pg (27.0-31.0); Mean Corpuscular Volume 86.9 fL (78.0-102.0); Mean Platelet Volume 10.9 fl (8.7-11.0); Monocytes Absolute Auto 0.68 K/mm3 (0.10-0.90); Monocytes Percent Auto 6.8 % (2.0-11.0); Neutrophils Absolute Auto 6.54 K/mm3 (1.70-7.20); Neutrophils Percent Auto 65.9 % (50.0-70.0); Platelet Count Result 219 K/mm3 (150-420); Red Blood Count 5.18 M/mm3 (4.70-6.10); Red Cell Distribution Width 12.3 % (11.6-14.4); White Blood Count 9.9 K/mm3 (4.8-10.8)
[2023-06-29 16:23] LABS: Anion Gap 9 mmol/L (4-12); Blood Urea Nitrogen 14 mg/dL (7-18); Calcium 7.9 mg/dL (8.5-10.1); Carbon Dioxide 29 mmol/L (21-32); Chloride 95 mmol/L (98-108); Estimated Glomerular Filt Rate > 60; Osmolality Calculated 298 mOsm/kg (285-295); Potassium 4.3 mmol/L (3.5-5.1); Sodium 133 mmol/L (136-145); Uric Acid 5.9 mg/dL (3.5-7.2)
[2023-06-29 16:29] LABS: Glucose 495 mg/dL (70-99)
[2023-06-29 16:44] LABS: Hemoglobin A1C > 13.7 % (<5.7)
== END 2023-06-29 15:26 | disposition home or self-care (01) ==
LOC: CHSLAB 15:26
PROVIDERS: PCP Family Medicine; Visit Provider Family Medicine
DX: E13.42 Other specified diabetes mellitus with diabetic polyneuropathy (principal); M10.9 Gout, unspecified
CPT/HCPCS: 36415; 80048; 80053; 83036; 84550; 85025

== ENCOUNTER 2023-09-26 07:28 | Outpatient (CLI) | payer BC, SELFPAY ==
[2023-09-26 09:18] LABS: Basophils Absolute Auto 0.06 K/mm3 (0.00-0.10); Basophils Percent Auto 0.7 % (0.0-1.0); Eosinophils Absolute Auto 0.31 K/mm3 (0.02-0.50); Eosinophils Percent Auto 3.5 % (1.0-6.0); Hematocrit 49.1 % (40.0-54.0); Hemoglobin 17.3 g/dL (14.0-18.0); Immature Granulocyte Absolute 0.05 K/mm3 (0.00-0.00); Immature Granulocyte Percent A 0.6 % (0.0-0.0); Lymphocytes Absolute Auto 2.01 K/mm3 (1.10-4.50); Lymphocytes Percent Auto 22.7 % (18.0-42.0); Mean Corpuscular HGB Conc 35.2 g/dL (32-36); Mean Corpuscular Hemoglobin 31.7 pg (27.0-31.0); Mean Corpuscular Volume 89.9 fL (78.0-102.0); Mean Platelet Volume 10.4 fl (8.7-11.0); Monocytes Absolute Auto 0.64 K/mm3 (0.10-0.90); Monocytes Percent Auto 7.2 % (2.0-11.0); Neutrophils Absolute Auto 5.78 K/mm3 (1.70-7.20); Neutrophils Percent Auto 65.3 % (50.0-70.0); Platelet Count Result 215 K/mm3 (150-420); Red Blood Count 5.46 M/mm3 (4.70-6.10); Red Cell Distribution Width 12.4 % (11.6-14.4); White Blood Count 8.9 K/mm3 (4.8-10.8)
[2023-09-26 09:44] LABS: Alanine Aminotransferase 87 U/L (16-63); Albumin Level 3.8 g/dL (3.4-5.0); Alkaline Phosphatase 88 U/L (46-116); Anion Gap 8 mmol/L (4-12); Aspartate Amino Transferase 42 U/L (15-37); Bilirubin,Total 0.6 mg/dL (0.00-1.00); Blood Urea Nitrogen 11 mg/dL (7-18); Calcium 8.9 mg/dL (8.5-10.1); Carbon Dioxide 29 mmol/L (21-32); Chloride 101 mmol/L (98-108); Cholesterol 169 mg/dL (0-200); Estimated Glomerular Filt Rate > 60; Glucose 163 mg/dL (70-99); HDL Direct 34 mg/dL (40-60); LDL Cholesterol Calculated 105 mg/dL (<130); Osmolality Calculated 289 mOsm/kg (285-295); Potassium 4.5 mmol/L (3.5-5.1); Sodium 138 mmol/L (136-145); Thyroid Stimulating Hormone 2.12 uIU/mL (0.36-3.74); Total Protein 7.6 g/dL (6.4-8.2); Triglycerides 151 mg/dL (0-150)
== END 2023-09-26 07:29 | disposition home or self-care (01) ==
PROVIDERS: PCP Family Medicine; Visit Provider Family Medicine
DX: E11.9 Type 2 diabetes mellitus without complications (principal); E78.5 Hyperlipidemia, unspecified
CPT/HCPCS: 36415; 80053; 80061; 83036; 84443; 85025

== ENCOUNTER 2024-02-06 07:26 | Outpatient (CLI) | payer BC, SELFPAY ==
[2024-02-06 07:41] LABS: Basophils Absolute Auto 0.05 K/mm3 (0.00-0.10); Basophils Percent Auto 0.9 % (0.0-1.0); Eosinophils Absolute Auto 0.25 K/mm3 (0.02-0.50); Eosinophils Percent Auto 4.3 % (1.0-6.0); Hematocrit 49.4 % (40.0-54.0); Immature Granulocyte Absolute 0.03 K/mm3 (0.00-0.00); Immature Granulocyte Percent A 0.5 % (0.0-0.0); Lymphocytes Absolute Auto 1.56 K/mm3 (1.10-4.50); Lymphocytes Percent Auto 27.1 % (18.0-42.0); Mean Corpuscular HGB Conc 34.4 g/dL (32-36); Mean Corpuscular Hemoglobin 30.6 pg (27.0-31.0); Monocytes Absolute Auto 0.44 K/mm3 (0.10-0.90); Monocytes Percent Auto 7.6 % (2.0-11.0); Neutrophils Absolute Auto 3.43 K/mm3 (1.70-7.20); Neutrophils Percent Auto 59.6 % (50.0-70.0); Platelet Count Result 181 K/mm3 (150-420); Red Blood Count 5.55 M/mm3 (4.70-6.10); Red Cell Distribution Width 13.1 % (11.6-14.4); White Blood Count 5.8 K/mm3 (4.8-10.8)
[2024-02-06 08:59] LABS: Alanine Aminotransferase 108 U/L (16-63); Albumin Level 3.8 g/dL (3.4-5.0); Alkaline Phosphatase 94 U/L (46-116); Anion Gap 11 mmol/L (4-12); Aspartate Amino Transferase 38 U/L (15-37); Bilirubin,Total 0.6 mg/dL (0.00-1.00); Blood Urea Nitrogen 15 mg/dL (7-18); Calcium 8.9 mg/dL (8.5-10.1); Carbon Dioxide 28 mmol/L (21-32); Chloride 101 mmol/L (98-108); Estimated Glomerular Filt Rate > 60; Glucose 214 mg/dL (70-99); Osmolality Calculated 296 mOsm/kg (285-295); Potassium 4.5 mmol/L (3.5-5.1); Prostate Specific Antigen 1.1 ng/mL (< OR = 4.0); Sodium 140 mmol/L (136-145); Total Protein 6.7 g/dL (6.4-8.2)
== END 2024-02-06 07:27 | disposition home or self-care (01) ==
LOC: CHSLAB 07:27
PROVIDERS: PCP Family Medicine; Visit Provider Family Medicine
DX: E13.42 Other specified diabetes mellitus with diabetic polyneuropathy (principal); Z12.5 Encounter for screening for malignant neoplasm of prostate
CPT/HCPCS: 36415; 80053; 83036; 84153; 85025; G0103

== ENCOUNTER 2024-02-12 09:58 | Outpatient (CLI) | payer BC, SELFPAY ==
--- NOTE | ~2024-02-12 | CT_ITS ---
CT Scan of the Chest without Contrast: Clinical Indication: Pulmonary infiltrates Technique: Contiguous sections were acquired throughout the chest without intravenous contrast. Dose reduction technique was used on this scan by utilizing automated exposure control and iterative recon struction technique. The dose-length product (DLP) was 520.07 mGy-cm. COMPARISON: 02/06/2023 Findings: Stable shotty mediastinal lymph nodes. Main pulmonary artery measures 4.6 cm in diameter. There are m oderate coronary artery calcifications. No aortic aneurysm evident. There is no evidence of pleural or pericardial effusion. Extensive chronic interstitial disease in the lungs is similar to prior exam, with extensive intersti tial thickening and areas of architectural distortion. No discrete/suspicious pulmonary nodule seen. Images through the upper abdomen reveal probable diffuse hepatic steatosis. Impression: Stable extensive chronic interstitial pulmonary disease. Dilated main pulmonary artery suggests pulmonary artery hypertension. Probable diffuse hepatic steatosis. Reviewed, dictated and finalized at [facility]. CAMP UNIT LEADER Impression: Stable extensive chronic interstitial pulmonary disease. Dilated main pulmonary artery suggests pulmonary artery hypertension. Probable diffuse hepatic steatosis.
== END 2024-02-12 09:59 | disposition home or self-care (01) ==
LOC: CHSIMG 10:00
PROVIDERS: PCP Family Medicine; Visit Provider Internal Medicine Pulmonary Disease
DX: Z12.2 Encounter for screening for malignant neoplasm of respiratory organs (principal); Z87.891 Personal history of nicotine dependence; J84.9 Interstitial pulmonary disease, unspecified; R91.8 Other nonspecific abnormal finding of lung field
CPT/HCPCS: 71250

== ENCOUNTER 2024-04-13 16:17 | Outpatient (CLI) | payer BC, SELFPAY ==
--- NOTE | ~2024-04-13 | XR_ITS ---
CHEST RADIOGRAPH, PA AND LATERAL CLINICAL HISTORY: Acute cough . COMPARISON: 01/03/2022. Reference is also made to CT examination of the chest dated 02/06/2023 and 02/07/2022. TECHNIQUE: PA and lateral views of the chest. FINDINGS Prominence of the main pulmonary arteries are identified frontal view. The remainder of the cardiomediastinal silhouette is otherwise unremarkable. Interstitial thickening is identified bilaterally, consistent with patient's known interstitial lung disease. Hazy opacification of the right upper lobe is also noted, similar in appearance to prior CT examinati on 2022. No focal infiltrate or effusion is appreciated. IMPRESSION: Findings consistent with patient's interstitial pulmonary disease, without focal infiltrate or effusi on. Reviewed, dictated and finalized at location A. [facility] IMPRESSION: Findings consistent with patient's interstitial pulmonary disease, without foca l infiltrate or effusion.
--- OUTSIDE RECORDS SUMMARY | 2024-04-13 16:45 | XMS_ITS | Encounter Summary ---
Author Organization [facility] Address [facility] [place] [address] [place] [address] Care Team Providers Care Motor Vehicle Operator Road Supervisor Name Role Phone Unavailable Primary Care Provider Unavailabl e Encounter Details Date Type Department Care Team (Late st Contact Info) Description 08/21/2018 Abstract SFL CONVERSION [address] [place] [address] , Generic Conversion, Social History Tobacco Use Types Packs/Day Years Used Date Smoking Tobacco: Never Assessed Sex and Gender Information Value Date Recorded Sex Assigned at Not on file Legal Sex Male 3:40 PM CDT Gender Identity Not on file Sexual Orientation Not on file documented as of this encounter Plan of Treatment Not on file documented as of this encounter Visit Diagnoses Not on filedocumented in this encounter
--- OUTSIDE RECORDS SUMMARY | 2024-04-13 16:45 | XMS_ITS | Clinical Summary ---
Author Organization [facility] Address [address] [place] [address]. [place], [place] [id number] [place] [id number] Care Team Providers Care Metal Sander Name Role Phone Unavailable Primary Care Provider Unavailabl e Social History Tobacco Use Types Packs/Day Years Used Date Smoking Tobacco: Never Assessed Sex and Gender Information Value Date Recorded Sex Assigned at Not on file Legal Sex Male 3:40 PM CDT Gender Identity Not on file Sexual Orientation Not on file Plan of Treatment Health Maintenance Due Date Last Done Comments Colorectal Cancer Screening Colonoscopy (10 Years) 1965 Annual Physical 10/14/1967 Hepatitis C 1982 DTaP, Tdap and Td Vaccines ( 1 - Tdap) 10/14/1983 Zoster Vaccines (1 of 2) 2014 COVID-19 Vaccine ( - 2023-2 5 season) 2023 Influenza Adult (#1) 2023 Meningococcal B Vaccine Aged Out No l onger eligible based on patient's age to complete this topic Meningococcal Vaccine Aged Out No león mally eligible based on patient's age to complete this topic Pneumococcal Vaccine: Pediat rics (0 to 5 Years) and At-Risk Patients (6 to 64 Years) Aged Out No longer eligible b ased on patient's age to complete this topic RSV Immunizations Under 20 Months Aged Out No longer eligible based on patient's age to complete this topic Insurance [facility]
--- OUTSIDE RECORDS SUMMARY | 2024-04-13 16:45 | XMS_ITS | Patient Health Summary ---
Author Organization [facility] Address [address] [place] [address] Care Team Providers Care Trolley Wire Installer Name Role Phone Kip Martel MD Primary Care Provider [phone] Note from [facility] [place][note 2],non-owned Affiliates and Associated Physician Practices is amultiple site organization consisting of ambulatory clinics and hospital sitesin [place], [place], [place] and [place]. This disclosure is being madepursuant to the Care Everywhere program and may not contain all information available regarding this patient. Last updated 17.[facility] Social History Tobacco Use Types Packs/Day Years Used Date Smoking Tobacco: Never Assessed Sex and Gender Information Value Date Recorded Sex Assigned at Not on file Gender Identity Not on file Sexual Orientation Not on file Last Filed Vital Signs Vital Sign Reading Time Taken Comments Blood Pressure 134/96 09/01/2016 1:55 PM CDT Pulse 92 09/01/2016 1:55 PM CDT Temperature 36.7 ??C (98 ??F) 09/01/2016 1:55 PM CDT Respiratory Rate 18 10/15/2015 2:55 PM CDT Oxygen Saturation 94% 09/01/2016 1:55 PM CDT Inhaled Oxygen Concentration - - Weight 98.9 kg (218 lb) 09/01/2016 1:55 PM CDT Height 175.3 cm (5' 9 ) 09/01/2016 1:55 PM CDT Body Mass Index 32.19 09/01/2016 1:55 PM CDT Procedures * LAB HISTORICAL RESULTS-ONBASE(Performed 11/03/2016) * LAB HISTORICAL RESULTS-ONBASE(Performed 11/02/2016) * LAB HISTORICAL RESULTS-ONBASE(Performed 10/27/2016) * LAB HISTORICAL RESULTS-ONBASE(Performed 08/23/2016) * LAB HISTORICAL RESULTS-ONBASE(Performed 01/06/2016) * LAB HISTORICAL RESULTS-ONBASE(Performed 01/06/2016) * LAB HISTORICAL RESULTS-ONBASE(Performed 11/06/2015) * LAB HISTORICAL RESULTS-ONBASE(Performed 11/06/2015) * LAB HISTORICAL RESULTS-ONBASE(Performed 09/20/2015) * LAB HISTORICAL RESULTS-ONBASE(Performed 09/20/2015) * LAB HISTORICAL RESULTS-ONBASE(Performed 02/03/2015) * LAB HISTORICAL RESULTS-ONBASE(Performed 02/03/2015) * CT FOOT LEFT WO CONTRAST(Performed 02/06/2014) * XR FOOT LEFT 3VW OR MORE(Performed 01/30/2014) * XR FOOT LEFT 3VW OR MORE(Performed 01/30/2014) * LAB HISTORICAL RESULTS-ONBASE(Performed 01/24/2014) * LAB HISTORICAL RESULTS-ONBASE(Performed 02/28/2012) * LAB HISTORICAL RESULTS-ONBASE(Performed 02/28/2012) * LAB HISTORICAL RESULTS-ONBASE(Performed 02/28/2012) * LAB HISTORICAL RESULTS-ONBASE(Performed 02/28/2012) * LAB HISTORICAL RESULTS-ONBASE(Performed 08/30/2011) * LAB HISTORICAL RESULTS-ONBASE(Performed 06/23/2011) * LAB HISTORICAL RESULTS-ONBASE(Performed 06/23/2011) Results * LAB HISTORICAL RESULTS-ONBASE (11/03/2016) Only the most recent of20 resultswithin the time period is included. 11/03/2016 Historical Provider LAB - CHEMISTRY O RDERABLES [facility] [address] [place] [address], [facility] * CT FOOT LEFT WO CONTRAST (02/06/2014 12:43 PM ELECTRONIC EQUIPMENT MAINT TECH) Anatomical Region Laterality Modality Other Impressions 02/06/2014 4:52 PM ELECTRONIC EQUIPMENT MAINT TECH IMPRESSION: 1. No acute fracture or evidence of healing fracture. The bone marrow edema demonstrated in the fifth metatarsal, head of the fourth metatarsal, cuboid bone, and anterior talus on the prior MRI likely represent bone contusions or stress reaction. Report dictated by Jason Mauricio M.D. (resident). This report was approved ??by Jason Mauricio M.D. ?? on 02/06/2014 4:44 PM . I, Dr. VLADIMIR MONAHAN MD have personally reviewed and interpreted this examination/study. This report was electronically signed by VLADIMIR MONAHAN MD ??on 02/06/2014 4:52 PM . Narrative 02/06/2014 4:52 PM ELECTRONIC EQUIPMENT MAINT TECH CT EXTREMITY OF THE LEFT FOOT Clinical History: Pain at the fourth and fifth metatarsals TECHNIQUE: 0.60-mm contiguous axial images were obtained through left foot in bone and soft tissue window algorithms. Post processing reconstructions were obtained in the coronal and sagittal planes. FINDINGS: Comparison is made to left foot radiographs on 01/30/2014 and MRI dated 01/14/14. No acute fracture or dislocation is identified. No periosteal reaction, callus formation, or evidence of healing fracture is identified at the base of fifth metatarsal, head of the fourth metatarsal, cuboid bone, or anterior talus to correspond with the marrow edema seen on the prior MRI on 01/14/2014, therefore the MRI findings likely represent bone contusions or stress related edema. The joint spaces appear normal without joint space narrowing. There is scattered minimal nonspecific degenerative changes. No soft tissue swelling is identified. A 2 mm lucency is seen in the medial cortex of the second proximal phalanx, correlating with the radiographs on 01/30/2014, representing a small intracortical cyst. Procedure Note Vladimir Monahan MD - 06/13/2017 CT EXTREMITY OF THE LEFT FOOT Clinical History: Pain at the fourth and fifth metatarsals TECHNIQUE: 0.60-mm contiguous axial images were obtained through left footin bone and soft tissue window algorithms. Post processing reconstructionswere obtained in the coronal and sagittal planes. FINDINGS: Comparison is made to left foot radiographs on 01/30/2014 andMRI dated 01/14/14. No acute fracture or dislocation is identified. No periosteal reaction,callus formation, or evidence of healing fracture is identified at thebase of fifth metatarsal, head of the fourth metatarsal, cuboid bone, oranterior talus to correspond with the marrow edema seen on the prior MRI on 01/14/2014, therefore the MRIfindings likely represent bone contusions or stress related edema. Thejoint spaces appear normal without joint space narrowing. There isscattered minimal nonspecific degenerative changes. No soft tissue swelling is identified. A 2 mm lucency is seen inthe medial cortex of the second proximal phalanx, correlating with theradiographs on 01/30/2014, representing a small intracortical cyst. IMPRESSION IMPRESSION: 1. No acute fracture or evidence of healing fracture. The bone marrowedema demonstrated in the fifth metatarsal, head of the fourth metatarsal,cuboid bone, and anterior talus on the prior MRI likely represent bonecontusions or stress reaction. Report dictated by Jason Mauricio M.D. (resident). This report was approved by Jason Mauricio M.D. on 02/06/2014 4:[address] VLADIMIR Richardson MD have personally reviewed and interpreted thisexamination/study. This report was electronically signed by VLADIMIR MONAHAN MD on02/06/2014 4:52 PM . Derek Castillo DO CT ORDERABLES * XR FOOT LEFT 3VW OR MORE (01/30/2014 2:01 PM ELECTRONIC EQUIPMENT MAINT TECH) Only the most recent of2 resultswithin the time period is included. Anatomical Region Laterality Modality Ankle / Foot Other Impressions 01/30/2014 2:46 PM ELECTRONIC EQUIPMENT MAINT TECH Impression: No acute osseous abnormality or significant degenerative change. Report dictated by David Tolbert DO (vice president of talent acquisition). This report was approved ??by David Tolbert D.O. ?? on 01/30/2014 2:[address] VLADIMIR Richardson MD have personally reviewed and interpreted this examination/study. This report was electronically signed by VLADIMIR MONAHAN MD ??on 01/30/2014 2:46 PM . Narrative 01/30/2014 2:46 PM ELECTRONIC EQUIPMENT MAINT TECH Examination: XR FOOT LEFT 3+ VW Date: 01/30/2014 2:01 PM History: please place metallic bead on location marked. Need Oblique and Lateral view- Weight bearing Findings: Comparison is made with x-ray left foot on 01/30/2014 A metallic BB is now noted overlying the soft tissues along the lateral aspect of the base of the fifth metatarsal. There is a 2 mm lucency in the medial cortex of the second proximal phalanx which may represent a cyst. The osseous structures appear intact and well aligned. The joint spaces appear intact. No focal soft tissue swelling. Procedure Note Vladimir Monahan MD - 06/13/2017 Examination: XR FOOT LEFT 3+ VW Date: 01/30/2014 2:01 PM History: please place metallic bead on location marked. Need Oblique andLateral view- Weight bearing Findings: Comparison is made with x-ray left foot on 01/30/2014 A metallic BB is now noted overlying the soft tissues along the lateralaspect of the base of the fifth metatarsal. There is a 2 mm lucency in themedial cortex of the second proximal phalanx which may represent a cyst.The osseous structures appear intact and well aligned. The joint spaces appear intact. No focal softtissue swelling. IMPRESSION Impression: No acute osseous abnormality or significant degenerative change. Report dictated by David Tolbert DO (vice president of talent acquisition). This report was approved by David Tolbert D.O. on 01/30/2014 2:27 PM. I, Dr. VLADIMIR MONAHAN MD have personally reviewed and interpreted thisexamination/study. This report was electronically signed by VLADIMIR MONAHAN MD on01/30/2014 2:46 PM . Derek Castillo DO [facility] Care Teams Trolley Wire Installer Relationship Specialty Start Date End Date Kip Martel MD [address] [place] [id number] PCP - General 10/17/19
--- OUTSIDE RECORDS SUMMARY | 2024-04-13 16:45 | XMS_ITS | CONTINUITY OF CARE DOCUMENT ---
Author Name rosario ponce Address Unknown Organization [facility] Address [address] [place] [address] Phone [phone] Care Team Providers Care Insurance Investigator Name Role Phone rosario ponce Unavailable Unavailable INSURANCE PROVIDERS Payer name Policy type / Coverage type [place] red libertarian ID [facility] [id number] Other [id number]
--- OUTSIDE RECORDS SUMMARY | 2024-04-13 16:45 | XMS_ITS | Clinical Summary ---
[facility] Address [address] [place] [address] Care Team Providers Care Dental Associate Name Role Phone Kip Martel MD Primary Care Provide r Allergies Active Allergy Reactions Criticality Noted Date Comments Etodolac Medications allopurinoL (ZYLOPRIM) 100 mg tablet Take 100 mg by mouth daily Active lisinopriL (PRINIVIL,ZESTR IL) 40 mg tablet Take 40 mg by mouth daily Active gabapentin (NEURONTIN) 300 mg capsule Take 300 mg by mouth 3 (three) times a day Active omeprazole (PriLOSEC) 10 mg capsule Take 10 mg by mouth daily Active albuterol 0.63 mg/3 mL nebulizer solution Take 0.63 mg by nebulization every 6 (six) hours as needed for wheezing Active metFORMIN (GLUCOPHAGE) 500 mg tablet 2 Active amitriptyline (ELAVIL) 50 mg tabletIndicatio ns:Numbness and tingling of both feet Take one tablet (50 mg) po qhs 30 tablet 3 2 Active Active Problems Problem Noted Date Diagnosed Date Numbness and tingling of both feet 03/04/2021 Surgical History Surgery Date Site/Laterality Comments TONSILLECTOMY Medical History Medical History Date Comments Asthma Asthma; Comments : [facility] 01/06/2014 - Other Medical Back pain; Comm ents: [facility] 01/06/2014 - Other Medical Gastric Reflux; Comments: [facility] 01/06/2014 - Hx Other Medical Barretts syndro me; Comments: [facility] 01/06/2014 - Hx Other Medical Sarcoidosis; Co mments: [facility] 01/06/2014 - Other Medical Neuropathy hand and feet; Comments: [facility] 01/06/2014 - Hx Other Medical septic knee 201 1; Comments: [facility] 01/06/2014 - Hx Other Medical removed cyst; C omments: [facility] 01/06/2014 - Hx Other Medical removed cyst 20 10; Comments: [facility] 01/06/2014 - Hx Other Medical Insert Omer; Com ments: [facility] 01/06/2014 - Hx Other Medical Remove tonsils 1970; Comments: [facility] 01/06/2014 - Hypertension Diabetes mellitus (HCC) ADHD (attention deficit hype ractivity disorder) Family History Medical History Relation Name Comments Arthritis Other 1 Family history of Arthritis; Cancer Other 2 Family history of Cancer, unknown; Gout Other 3 Family history of Gout; Hypertension Other 4 Family history of Hypertension; Alcohol abuse Other 5 Family history of Alcoholism; Heart disease Other 6 Family history of Heart problems; Other Other 7 Family history of Bleeding problems; ADD / ADHD Other 8 Family history of ADD/ADHD; Relation Name Status Comments Other 1 Other 2 Other 3 Other 4 Other 5 Other 6 Other 7 Other 8 Social History Tobacco Use Types Packs/Day Years Used Date Smoking Tobacco: Former Smokeless Tobacco: Never Sex and Gender Information Value Date Recorded Sex Assigned at Not on file Legal Sex Male 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 Gender Identity Not on file Sexual Orientation Not on file Obstetrics History Last Filed Vital Signs Vital Sign Reading Time Taken Comments Blood Pressure 151/86 10/16/2021 1:51 PM CDT Pulse 94 10/16/2021 1:51 PM CDT Temperature - - Respiratory Rate - - Oxygen Saturation - - Inhaled Oxygen Concentration - - Weight 107.7 kg (237 lb 6.4 oz) 10/16/2021 1:51 PM CDT Height 175.3 cm (5' 9 ) 10/16/2021 1:51 PM CDT Body Mass Index 35.06 10/16/2021 1:51 PM CDT Plan of Treatment Health Maintenance Due Date Last Done Comments Colon Cancer Screening-Colonoscopy 1964 Depression Screening 1964 Hepatitis C Screening 1964 Prostate Cancer Screening-PSA 1964 Hepatitis B Screening 1982 Regular Well Visit/Exam 18-64 1982 Covid-19 Vaccine ( season) 2023 09/21/2020, 08/25/2020 Influenza Vaccine (#1) 2023 , 12/28/2019, 12/29/2018, Additional history exists DTaP/Tdap/Td Vaccine (2 - Td or Tdap) 12/21/2023 12/20/2013 Pneumococcal vaccine <65 Aged Out 12/20/2013, 02/13 No longer eligible based on patient's age to complete this topic Zoster Vaccine Completed 12/28/2019, 05/04/2019 Insurance BLUE ACC CHOICE OOS BLUE ACCESS OOS Care Teams Dental Associate Relationship Specialty Start Date End Date Kip Martel MD [address] [place], [place] [id number] PCP - General 01/06/14
--- OUTSIDE RECORDS SUMMARY | 2024-04-13 16:45 | XMS_ITS | Clinical Summary ---
Author Organization [facility] Address [address] [place] [address] Care Team Providers Care School Psychological Examiner Name Role Phone Kip Martel MD Primary Care Provider [phone] Source Comments [facility],non-owned Affiliates and Associated Physician Practices is amultiple site organization consisting of ambulatory clinics and hospital sitesin [place], [place], [place] and [place]. This disclosure is being madepursuant to the Care Everywhere program and may not contain all information available regarding this patient. Last updated 17.[facility] Social History Tobacco Use Types Packs/Day [...] Mass Index 32.19 09/01/2016 1:55 PM CDT Plan of Treatment Health Maintenance Due Date Last Done Comments COLOGUARD (AGES 45-75) - COL ON CA SCREENING 1964 COLON MONITORING 1964 COLONOSCOPY - COLON CA SCREENING 1964 CT COLONOGRAPHY - COLON CA SCREENING 1964 Colorectal Cancer Screening 1964 FIT - COLON CA SCREENING 1964 FLEX SIG - COLON CA SCREENING 1964 LIPID TESTING 1964 HIV SCREENING 10/14/1979 HEPATITIS C SCREENING 10/09/1982 DTAP/TDAP/TD VACCINES (1 - Tdap) 10/14/1983 HEPATITIS B VACCINE (1 of 3 - 19+ 3-dose series) 10/14/1983 PNEUMOCOCCAL VACCINE 50+ (1 of 1 - PCV) 2014 ZOSTER VACCINE (1 of 2) 2014 COVID-19 VACCINE (1 - 2023-2 5 season) 2023 INFLUENZA VACCINE (#1) 2023 03/02/2012 DEPRESSION SCREENING 03/16/2024 HIB VACCINE Aged Out No longer eligi ble based on patient's age to complete this topic HPV VACCINE Aged Out No longer eligi ble based on patient's age to complete this topic MENINGOCOCCAL (Group B) VACCINE Aged Out No longer eligible based on patient's age to complete this topic MENINGOCOCCAL VACCINE Aged Out No león mally eligible based on patient's age to complete this topic PNEUMOCOCCAL VACCINE Aged Out No long er eligible based on patient's age to complete this topic Care Teams School Psychological Examiner Relationship Specialty Start Date End Date Kip Martel MD [address] [place] [address] PCP - General 10/17/19
--- OUTSIDE RECORDS SUMMARY | 2024-04-13 16:45 | XMS_ITS | Referral Summary ---
Author Organization [facility] Address [address] [place] [address] Care Team Providers Care Surgical Technologist Name Role Phone Kip Martel MD Primary Care Provider [phone] Source Comments [facility],non-[facility] Affiliates and Associated Physician Practices is amultiple site organization consisting of ambulatory clinics and hospital sitesin [place], [place], [place] and [place]. This disclosure is being madepursuant to the Care Everywhere program and may not contain all information available regarding this patient. Last updated 17.[facility] Social History Tobacco Use Types Packs/Day [...] 09/01/2016 1:55 PM CDT Plan of Treatment Not on file Care Teams Surgical Technologist Relationship Specialty Start Date End Date Kip Matrel MD [address] [place] [address] PCP - General 10/17/19
--- OUTSIDE RECORDS SUMMARY | 2024-04-13 16:45 | XMS_ITS | Referral Summary ---
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
== END 2024-04-13 16:18 | disposition home or self-care (01) ==
PROVIDERS: PCP Family Medicine; Visit Provider Family Medicine
DX: R05.1 Acute cough (principal); R91.8 Other nonspecific abnormal finding of lung field
CPT/HCPCS: 71046

== ENCOUNTER 2024-05-28 07:23 | Outpatient (CLI) | payer BC, SELFPAY ==
--- OUTSIDE RECORDS SUMMARY | 2024-05-28 07:28 | XMS_ITS | Clinical Summary ---
Author Organization [facility] Address [address] [place] [address] Care Team Providers Care Toll Testboard Worker Name Role Phone Kip Martel MD Primary [...] History Date Comments Asthma Asthma; Comments : [facility] 01/06/2014 - Other Medical Back pain; Comm ents: [facility] 01/06/2014 - Other Medical Gastric Reflux; Comments: [facility] 01/06/2014 - Hx Other Medical Barretts syndro me; Comments: [facility] 01/06/2014 - Hx Other Medical Sarcoidosis; Co mments: [facility] 01/06/2014 - Other Medical Neuropathy hand and feet; Comments: [facility] 01/06/2014 - Hx Other Medical septic knee 201 1; Comments: [facility] 01/06/2014 - Hx Other Medical removed cyst; C omments: [facility] 01/06/2014 - Hx Other Medical removed cyst 20 10; Comments: [facility] 01/06/2014 - Hx Other Medical Insert Omer; Com ments: [facility] 01/06/2014 - Hx Other Medical Remove tonsils 1970; Comments: [facility] 01/06/2014 - Hypertension Diabetes mellitus (HCC) ADHD [...] on file 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
--- OUTSIDE RECORDS SUMMARY | 2024-05-28 07:28 | XMS_ITS | Referral Summary ---
Author Organization [facility] Address [address] [place] [address] Care Team Providers Care Bottle Line Worker Name Role Phone Kip Martel MD Primary Care Provider Source Comments [facility],non-owned Affiliates and Associated Physician Practices is amultiple site organization consisting of ambulatory clinics and hospital sitesin [place], [place], [place] and [place]. This disclosure is being madepursuant to the Care Everywhere program and may not contain all information available regarding this patient. Last updated 17.[facility] Social History Tobacco Use Types Packs/Day Years Used Date Smoking Tobacco: Never Assessed Sex and Gender Information Value Date Recorded Sex Assigned at Not on file Gender Identity Not on file Sexual Orientation Not on file Last Filed Vital Signs Vital Sign Reading Time Taken Comments Blood Pressure 134/96 09/01/2016 1:55 PM CDT Pulse 92 09/01/2016 1:55 PM CDT Temperature 36.7 C (98 F) 09/01/2016 1:55 PM CDT Respiratory Rate 18 10/15/2015 2:55 PM CDT Oxygen Saturation 94% 09/01/2016 1:55 PM CDT Inhaled Oxygen Concentration - - Weight 98.9 kg (218 lb) 09/01/2016 1:55 PM CDT Height 175.3 cm (5' 9 ) 09/01/2016 1:55 PM CDT Body Mass Index 32.19 09/01/2016 1:55 PM CDT Plan of Treatment Not on file Care Teams Bottle Line Worker Relationship Specialty Start Date End Date Kip Martel MD [address] [place] [address] PCP - General 10/17/19
--- OUTSIDE RECORDS SUMMARY | 2024-05-28 07:28 | XMS_ITS | Patient Health Summary ---
Author Organization [facility] Address [address] [place] [address] Care Team Providers Care Spa Director Name Role Phone Kip Martel MD Primary Care Provider Note from [facility],non-owned Affiliates and Associated Physician Practices is amultiple site organization consisting of ambulatory clinics and hospital sitesin [place], [place], [place] and [place]. This disclosure is being madepursuant to the Care Everywhere program and may not contain all information available regarding this patient. Last updated 17.[facility] Social History Tobacco Use Types [...] Historical Provider LAB - CHEMISTRY O RDERABLES [place] [id number] [place] [address], [facility] * CT FOOT LEFT WO CONTRAST (02/06/2014 12:43 PM LEASING MACHINE TENDER) Anatomical Region Laterality Modality Other Impressions 02/06/2014 4:52 PM LEASING MACHINE TENDER IMPRESSION: 1. No acute fracture or evidence of healing fracture. The bone marrow edema demonstrated in the fifth metatarsal, head of the fourth metatarsal, cuboid bone, and anterior talus on the prior MRI likely represent bone contusions or stress reaction. Report dictated by Jason Mauricio M.D. (resident). This report was approved by Jason Mauricio M.D. on 02/06/2014 4:44 PM . I, Dr. VLADIMIR MONAHAN MD have personally reviewed and interpreted this examination/study. This report was electronically signed by VLADIMIR MONAHAN MD on 02/06/2014 4:52 PM . Narrative 02/06/2014 4:52 PM LE[address]ING MACHINE TENDER CT EXTREMITY OF THE LEFT FOOT Clinical [...] Jason Mauricio M.D. on 02/06/2014 4:44 PM. IDr. VLADIMIR MD have personally reviewed and interpreted thisexamination/study. This report was electronically signed by VLADIMIR MONAHAN MD on02/06/2014 4:52 PM . Derek Castillo DO CT ORDERABLES * XR FOOT LEFT 3VW OR MORE (01/30/2014 2:01 PM LEASING MACHINE TENDER) Only the most recent of2 resultswithin the time period is included. Anatomical Region Laterality Modality Ankle / Foot Other Impressions 01/30/2014 2:46 PM LEASING MACHINE TENDER Impression: No acute osseous abnormality or significant degenerative change. Report dictated by David Tolbert DO (residential sales consultant). This report was approved by David Tolbert D.O. on 01/30/2014 2:[address] VLADIMIR Richardson MD have personally reviewed and interpreted this examination/study. This report was electronically signed by VLADIMIR MONAHAN MD on 01/30/2014 2:46 PM . Narrative 01/30/2014 2:46 PM LEASING MACHINE TENDER Examination: XR FOOT LEFT 3+ VW Date: [...] change. Report dictated by David Tolbert DO (residential sales consultant). This report was approved by David Tolbert D.O. on 01/30/2014 2:27 PM. I, Dr. VLADIMIR MONAHAN MD have personally reviewed and interpreted thisexamination/study. This report was electronically signed by VLADIMIR MONAHAN MD on01/30/2014 2:46 PM . Derek Castillo DO DIAGNOSTIC IMAGING O [facility] Care Teams Spa Director Relationship Specialty Start Date End Date Kip Martel MD [address] [place] [id number] PCP - General 10/17/19
--- OUTSIDE RECORDS SUMMARY | 2024-05-28 07:28 | XMS_ITS | Referral Summary ---
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
--- OUTSIDE RECORDS SUMMARY | 2024-05-28 07:28 | XMS_ITS | Clinical Summary ---
Author Organization [facility] Address [address] [place] [address] Care Team Providers Care Software Design Manager Name Role Phone Kip Martel MD Primary Care Provider Source Comments [facility],non-owned Affiliates and Associated Physician Practices is amultiple site organization consisting of ambulatory clinics and hospital sitesin [place], [place], [place] and [place]. This disclosure is being madepursuant to the Care Everywhere program and may not contain all information available regarding this patient. Last updated 17.[facility] Social History Tobacco Use Types Packs/Day Years [...] VACCINE (1 of 2) 2014 COVID-19 VACCINE ( - 2023-2 5 season) 2023 INFLUENZA VACCINE (#1) 2023 03/02/2012 DEPRESSION SCREENING 03/16/2024 HIB VACCINE Aged Out No longer eligi ble based on patient's age to complete this topic HPV VACCINE Aged Out No longer eligi ble based on patient's age to complete this topic MENINGOCOCCAL (Group B) VACC INE SHARED DECISION-MAKING Aged Out No longer eligibl e based on patient's age to complete this topic MENINGOCOCCAL GROUPS A/C/Y/W VACCINE Aged Out No longer eligible b ased on patient's age to complete this topic PNEUMOCOCCAL VACCINE Aged Out No long er eligible based on patient's age to complete this topic Care Teams Software Design Manager Relationship Specialty Start Date End Date Kip Martel MD [address] [place] [address] PCP - General 10/17/19
--- OUTSIDE RECORDS SUMMARY | 2024-05-28 07:29 | XMS_ITS | Clinical Summary ---
Author Organization [facility] Address [address] [place] [address] Care Team Providers Care Beef Tagger Name Role Phone Unavailable Primary Care Provider [...] patient's age to complete this topic Insurance [facility]
--- OUTSIDE RECORDS SUMMARY | 2024-05-28 07:29 | XMS_ITS | CONTINUITY OF CARE DOCUMENT ---
Author Name rosario ponce Address Unknown Organization [facility] Address [address] [place] [address] Phone [phone] Care Team Providers Care Take Away Attendant Name Role Phone rosario ponce Unavailable Unavailable INSURANCE PROVIDERS Payer name Policy type / Coverage type [place] red libertarian ID [facility] [id number] Other [id number]
--- OUTSIDE RECORDS SUMMARY | 2024-05-28 07:29 | XMS_ITS | Encounter Summary ---
Author Organization [facility] Address [facility] [place] [address] Care Team Providers Care Business Intelligence Manager Name Role Phone Unavailable Primary Care Provider Unavailabl e Encounter Details Date Type Department Care Team (Late st Contact Info) Description 08/21/2018 Abstract [facility] CONVERSION [address] [place] [address] , Generic Conversion, Social History Tobacco Use [...]
[2024-05-28 07:45] LABS: Add Urine Microscopic? NO; Appearance Urine Clear (Clear); Basophils Absolute Auto 0.04 K/mm3 (0.00-0.10); Basophils Percent Auto 0.6 % (0.0-1.0); Bilirubin Urine Negative (Negative); Blood Urine Negative (Negative); Color Urine Light Yellow (Yellow); Eosinophils Absolute Auto 0.25 K/mm3 (0.02-0.50); Eosinophils Percent Auto 3.7 % (1.0-6.0); Glucose Urine UA 3+ (Negative); Hematocrit 49.1 % (40.0-54.0); Hemoglobin 16.1 g/dL (14.0-18.0); Immature Granulocyte Absolute 0.04 K/mm3 (0.00-0.00); Immature Granulocyte Percent A 0.6 % (0.0-0.0); Ketones Urine Negative (Negative); Leukocyte Esterase Ur Negative (Negative); Lymphocytes Absolute Auto 1.77 K/mm3 (1.10-4.50); Lymphocytes Percent Auto 26.3 % (18.0-42.0); Mean Corpuscular HGB Conc 32.8 g/dL (32-36); Mean Corpuscular Hemoglobin 30.2 pg (27.0-31.0); Mean Corpuscular Volume 92.1 fL (78.0-102.0); Mean Platelet Volume 10.5 fl (8.7-11.0); Monocytes Absolute Auto 0.44 K/mm3 (0.10-0.90); Monocytes Percent Auto 6.5 % (2.0-11.0); Neutrophils Absolute Auto 4.19 K/mm3 (1.70-7.20); Neutrophils Percent Auto 62.3 % (50.0-70.0); Nitrate Urine Negative (Negative); Platelet Count Result 187 K/mm3 (150-420); Protein Urine Negative (Negative); Red Blood Count 5.33 M/mm3 (4.70-6.10); Red Cell Distribution Width 13.2 % (11.6-14.4); Urobilinogen Urine 0.2 mg/dL (0.2-1.0); White Blood Count 6.7 K/mm3 (4.8-10.8); pH Urine 5.5 (5.0-8.0)
[2024-05-28 07:48] LABS: MALB Creatinine Ratio 26.6 mg/g (0-30); Microalbumin Urine Random 15.9 mg/L
[2024-05-28 07:50] LABS: Hemoglobin A1C 8.2 % (<5.7)
[2024-05-28 08:15] LABS: Alanine Aminotransferase 69 U/L (16-63); Albumin Level 3.5 g/dL (3.4-5.0); Alkaline Phosphatase 96 U/L (46-116); Anion Gap 8 mmol/L (4-12); Aspartate Amino Transferase 25 U/L (15-37); Bilirubin,Total 0.4 mg/dL (0.00-1.00); Blood Urea Nitrogen 16 mg/dL (7-18); Calcium 8.6 mg/dL (8.5-10.1); Carbon Dioxide 30 mmol/L (21-32); Chloride 108 mmol/L (98-108); Estimated Glomerular Filt Rate > 60; Glucose 169 mg/dL (70-99); Osmolality Calculated 307 mOsm/kg (285-295); Potassium 4.4 mmol/L (3.5-5.1); Sodium 146 mmol/L (136-145); Thyroid Stimulating Hormone 2.02 uIU/mL (0.36-3.74); Total Protein 6.8 g/dL (6.4-8.2)
== END 2024-05-28 07:24 | disposition home or self-care (01) ==
LOC: CHSLAB 07:26
PROVIDERS: PCP Family Medicine; Visit Provider Family Medicine
DX: E11.9 Type 2 diabetes mellitus without complications (principal)
CPT/HCPCS: 36415; 80053; 81003; 82043; 83036; 84443; 85025

== ENCOUNTER 2024-06-23 17:38 | Emergency (ER) | payer BC, SELFPAY ==
[2024-06-23] VITALS (27 sets, daily range): BP systolic 137–191; BP diastolic 85–116; PULSE 83–100; RESP 16–25; TEMP 36.7; O2SAT 88–100
--- NOTE | ~2024-06-23 | XR_ITS ---
XR chest 1V portable Ordering provider: Torrey Gonzalez MD History: 58 years Male with . chest pain shortness of breath . Comparison: None. FINDINGS: MEDIASTINUM: The cardiac silhouette is slightly enlarged. Prominent right hilum. LUNGS: No effusions or pneumothorax. Minimal opacification the left lung base. Bilateral interstitial changes with highly suggestive underlying fibrotic changes. OTHER: No free air under the diaphragm. IMPRESSION: Slight cardiomegaly with prominent right hilum. Minimal left basilar atelectasis versus pneumonia. Bilateral interstitial changes. Possibility of pneumonitis is not excluded. Reviewed, dictated and finalized at location A.
--- OUTSIDE RECORDS SUMMARY | 2024-06-23 17:41 | XMS_ITS | Encounter Summary ---
Author Organization [facility] Address [address] [place] [address] Care Team Providers Care Heavy Equipment Rental Manager Name Role Phone Unavailable Primary Care Provider Unavailabl e Encounter Details Date Type Department Care Team (Late st Contact Info) Description 08/21/2018 Abstract [facility] CONVERSION [address] [address] , Generic Conversion, Social History Tobacco Use [...]
--- OUTSIDE RECORDS SUMMARY | 2024-06-23 17:41 | XMS_ITS | Clinical Summary ---
Author Organization [facility] Address [address] [place] [address] Care Team Providers Care Film Technician Name Role Phone Kip Martel MD Primary [...] History Date Comments Asthma Asthma; Comments : [facility] 01/06/2014 - Other Medical Back pain; Comm ents: [facility] 01/06/2014 - Other Medical Gastric Reflux; Comments: [facility] 01/06/2014 - Hx Other Medical Barretts syndro me; Comments: [facility] 01/06/2014 - Hx Other Medical Sarcoidosis; Co mments: [facility] 01/06/2014 - Other Medical Neuropathy hand and feet; Comments: [facility] 01/06/2014 - Hx Other Medical septic knee 201 1; Comments: [facility] 01/06/2014 - Hx Other Medical removed cyst; C omments: [facility] 01/06/2014 - Hx Other Medical removed cyst 20 10; Comments: [facility] 01/06/2014 - Hx Other Medical Insert Omer; Com ments: [facility] 01/06/2014 - Hx Other Medical Remove tonsils 1970; Comments: [facility] 01/06/2014 - Hypertension Diabetes mellitus (HCC) ADHD [...] on file 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
--- OUTSIDE RECORDS SUMMARY | 2024-06-23 17:41 | XMS_ITS | CONTINUITY OF CARE DOCUMENT ---
Author Name rosario ponce Address Unknown Organization [facility] Address [address] [place] [address] Phone [phone] Care Team Providers Care Airline Stewardess Name Role Phone rosario ponce Unavailable Unavailable INSURANCE PROVIDERS Payer name Policy type / Coverage type [place] red alliance party ID [facility] [id number] Other [id number]
--- OUTSIDE RECORDS SUMMARY | 2024-06-23 17:41 | XMS_ITS | Referral Summary ---
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
--- OUTSIDE RECORDS SUMMARY | 2024-06-23 17:41 | XMS_ITS | Clinical Summary ---
Author Organization [facility] Address [address] [place] [address] Care Team Providers Care Art Historian Name Role Phone Kip Martel MD Primary Care Provider Source Comments [facility],non-owned Affiliates and Associated Physician Practices is amultiple site organization consisting of ambulatory clinics and hospital sitesin [place], [place], [place] and [place]. This disclosure is being madepursuant to the Care Everywhere program and may not contain all information available regarding this patient. Last updated 17.[facility] Social History Tobacco Use Types [...] VACCINE ( - 2023-2 5 season) 2023 DEPRESSION SCREENING 03/16/2024 INFLUENZA VACCINE (Season Ended) 2024 03/02/20 12 HIB VACCINE Aged Out No longer eligi [...] age to complete this topic Care Teams Art Historian Relationship Specialty Start Date End Date Kip Martel MD [address] [place] [address] PCP - General 10/17/19
--- OUTSIDE RECORDS SUMMARY | 2024-06-23 17:41 | XMS_ITS | Clinical Summary ---
Author Organization [facility] Address [address] [place] [address] Care Team Providers Care Welding Machine Setter Name Role Phone Unavailable Primary Care Provider [...] Vaccine ( - 2023-2 5 season) 2023 Meningococcal B Vaccine Aged Out No [...] patient's age to complete this topic Insurance [facility]
--- NOTE | 2024-06-23 17:47 | ECG_ITS ---
Test Date: 2024-06-23 17:49:56 Measurements Intervals [place] Rate: 97 P: 69 WY: 140 QRS: 110 QRSD: 122 T: 71 QT: 368 QTc: 468 Interpretive Statements SINUS RHYTHM RIGHT AXIS DEVIATION RIGHT BUNDLE BRANCH BLOCK BASELINE ARTIFACT- II, III ABNORMAL ECG No previous ECG available for comparison Electronically Signed On 06-24-2024 10:36:24 CDT by Kwaku Manjarrez D.O.
[2024-06-23] MEDS: SODIUM CHLORIDE 0.9% IV 1,000 ML 999 ML IV CONT (18:03)
[2024-06-23] MEDS: NITROGLYCERIN SL 0.4 MG TABLET SUBLINGUAL (18:04)
[2024-06-23] MEDS: ONDANSETRON INJ 4 MG/2 ML VIAL IV PUSH (18:05)
[2024-06-23] MEDS: IPRATROPIUM 0.5 MG/ALBUTEROL SULFATE 2.5 MG AMPUL.NEB 3 ML INHALATION (18:06)
[2024-06-23 18:11] LABS: Basophils Absolute Auto 0.05 K/mm3 (0.00-0.10); Basophils Percent Auto 0.7 % (0.0-1.0); Eosinophils Absolute Auto 0.21 K/mm3 (0.02-0.50); Eosinophils Percent Auto 2.7 % (1.0-6.0); Hematocrit 47.4 % (40.0-54.0); Hemoglobin 15.9 g/dL (14.0-18.0); Immature Granulocyte Absolute 0.04 K/mm3 (0.00-0.00); Immature Granulocyte Percent A 0.5 % (0.0-0.0); Lymphocytes Absolute Auto 1.93 K/mm3 (1.10-4.50); Lymphocytes Percent Auto 25.1 % (18.0-42.0); Mean Corpuscular HGB Conc 33.5 g/dL (32-36); Mean Corpuscular Hemoglobin 30.4 pg (27.0-31.0); Mean Corpuscular Volume 90.6 fL (78.0-102.0); Monocytes Absolute Auto 0.45 K/mm3 (0.10-0.90); Monocytes Percent Auto 5.9 % (2.0-11.0); Neutrophils Absolute Auto 5.01 K/mm3 (1.70-7.20); Neutrophils Percent Auto 65.1 % (50.0-70.0); Platelet Count Result 198 K/mm3 (150-420); Red Blood Count 5.23 M/mm3 (4.70-6.10); Red Cell Distribution Width 12.9 % (11.6-14.4); White Blood Count 7.7 K/mm3 (4.8-10.8)
--- OUTSIDE RECORDS SUMMARY | 2024-06-23 18:20 | XMS_ITS | Clinical Summary ---
Author Organization [facility] Address [address] [place] [address] Care Team Providers Care Aviation Tactical Readiness Officer Name Role Phone Kip Martel MD Primary [...] History Date Comments Asthma Asthma; Comments : [facility] 01/06/2014 - Other Medical Back pain; Comm ents: [facility] 01/06/2014 - Other Medical Gastric Reflux; Comments: [facility] 01/06/2014 - Hx Other Medical Barretts syndro me; Comments: [facility] 01/06/2014 - Hx Other Medical Sarcoidosis; Co mments: [facility] 01/06/2014 - Other Medical Neuropathy hand and feet; Comments: [facility] 01/06/2014 - Hx Other Medical septic knee 201 1; Comments: [facility] 01/06/2014 - Hx Other Medical removed cyst; C omments: [facility] 01/06/2014 - Hx Other Medical removed cyst 20 10; Comments: [facility] 01/06/2014 - Hx Other Medical Insert Omer; Com ments: [facility] 01/06/2014 - Hx Other Medical Remove tonsils 1970; Comments: [facility] 01/06/2014 - Hypertension Diabetes mellitus (HCC) ADHD [...] on file 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
--- OUTSIDE RECORDS SUMMARY | 2024-06-23 18:20 | XMS_ITS | Referral Summary ---
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
--- OUTSIDE RECORDS SUMMARY | 2024-06-23 18:20 | XMS_ITS | Clinical Summary ---
Author Organization [facility] Address [address] [place] [address] Care Team Providers Care Boardinghouse Keeper Name Role Phone Kip Martel MD Primary Care Provider Source Comments [facility],non-owned Affiliates and Associated Physician Practices is amultiple site organization consisting of ambulatory clinics and hospital sitesin [place], [place], [place] and [place]. This disclosure is being madepursuant to the Care Everywhere program and may not contain all information available regarding this patient. Last updated 17.[facility] Social History Tobacco Use [...] age to complete this topic Care Teams Boardinghouse Keeper Relationship Specialty Start Date End Date Kip Martel MD [address] [place] [address] PCP - General 10/17/19
--- OUTSIDE RECORDS SUMMARY | 2024-06-23 18:20 | XMS_ITS | CONTINUITY OF CARE DOCUMENT ---
Author Name rosario ponce Address Unknown Organization [facility] Address [address] [facility] [address] [place] [address] Phone [phone] Care Team Providers Care Plastics Plater Name Role Phone rsoario ponce Unavailable Unavailable INSURANCE PROVIDERS Payer name Policy type / Coverage type [place] red alliance party ID [facility] [id number] Other [id number]
[2024-06-23 18:26] LABS: D Dimer 0.22 mg/L (0.19-0.50); Partial Thromboplastin Time 31.7 Sec (23.9-30.70); Prothrombin Time 11.1 Seconds (9.50-12.1)
[2024-06-23 18:32] LABS: Alanine Aminotransferase 121 U/L (16-63); Albumin Level 3.7 g/dL (3.4-5.0); Alkaline Phosphatase 98 U/L (46-116); Anion Gap 9 mmol/L (4-12); Aspartate Amino Transferase 51 U/L (15-37); Bilirubin,Total 0.6 mg/dL (0.00-1.00); Blood Urea Nitrogen 13 mg/dL (7-18); Carbon Dioxide 29 mmol/L (21-32); Chloride 99 mmol/L (98-108); Estimated Glomerular Filt Rate 57; Glucose 271 mg/dL (70-99); Lipase 31 U/L (16-77); NT Pro B Type Natriuretic Pept 456 pg/mL (0-125); Osmolality Calculated 294 mOsm/kg (285-295); Potassium 3.9 mmol/L (3.5-5.1); Sodium 137 mmol/L (136-145); Total Protein 7.1 g/dL (6.4-8.2); Troponin I 23.6 ng/L (0.00-60.4)
[2024-06-23 18:47] LABS: Influenza A QL RT-PCR Negative (Negative); Influenza B QL RT-PCR Negative (Negative); RSV RNA, RT-PCR Negative (Negative); SARS-CoV-2 RNA PCR Negative (Negative)
--- NOTE | 2024-06-23 19:09 | PC.NURSE ---
ASSUMED CARE. REPORT RECEIVED FROM MARIUSZ RAVI
[2024-06-23] MEDS: methylPREDNISolone SOD SUCC 125 MG VIAL IV PUSH (19:25)
--- NOTE | 2024-06-23 20:00 | PC.NURSE ---
RESTING QUIETLY IN ROOM. REQUESTED TO SIT ON THE SIDE OF THE BED. THIS STRETCHER IS SO UNCOMFORTABLE . ASSISTED PATIENT FOR COMFORT
--- NOTE | 2024-06-23 20:34 | PC.NURSE ---
LAB AT THE BEDSIDE
--- NOTE | 2024-06-23 21:20 | PC.NURSE ---
DR MCKEON AT THE BEDSIDE
--- NOTE | 2024-06-23 21:31 | PC.NURSE ---
DR MCKEON AWARE OF BLOOD PRESSURE
[2024-06-23] MEDS: levoFLOXacin 500 MG TABLET PO (21:33)
--- NOTE | 2024-06-23 21:35 | PC.NURSE ---
DR MCKEON IS AWARE OF CURRENT BLOOD PRESSURE PRIOR TO DISCHARGE. OK TO CONTINUE WITH DISCHARGE. ENCOURAGED PATIENT TO MONITOR BLOOD PRESSURES AND FOLLOW UP WITH PCP IN THE AM OR TO RETURN TO ED
--- NOTE | 2024-07-05 09:17 | ED_ITS ---
HPI - Chest Pain General Chief Complaint: Chest Pain Stated Complaint: chest pain Time Seen by Provider: 06/23/24 17:46 Source: patient History of Present Illness HPI narrative: 58-year-old male with some symptoms of chest pain with cough congestion with no fever chills no nausea vomiting no abdominal pain. complaint: chest pain and chest discomfort Onset (ago): day(s) Related Data Home Medications ?Medication ?Instructions ?Recorded ?Confirmed ?Last Taken ?Type albuterol sulfate 0.63 mg/3 mL 0.83 mg inhalation Q6H 01/28/19 04/27/23 Unknown History solution for nebulization allopurinol 100 mg tablet 100 mg PO DAILY 01/28/19 04/27/23 Unknown History fluticasone fur. 100 mcg-umeclid 1 inhalation inhalation DAILY 01/28/19 04/27/23 Unknown History 62.5 mcg-vilant 25 mcg inhalat.powder (Trelegy Ellipta) gabapentin 300 mg capsule 300 mg PO DAILY 01/28/19 04/27/23 Unknown History omeprazole 40 mg capsule,delayed 40 mg PO DAILY 01/28/19 04/27/23 Unknown History release metformin 500 mg tablet 500 mg PO DAILY 04/21/22 04/27/23 Unknown History pioglitazone 30 mg tablet 30 mg PO DAILY 04/21/22 04/27/23 Unknown History Allergies Allergy/AdvReac Type Severity Reaction Status Date / Time etodolac Allergy Unknown VOMITING Verified 06/23/24 17:58 metformin Allergy Unknown Unknown Verified 06/23/24 17:58 Review of Systems 2 Review of Systems: All systems reviewed & are unremarkable except as noted in HPI and below PMFSH Past Medical History Medical History Chest pain at rest Chronic obstructive pulmonary disease, unspecified Chronic right-sided heart failure Chronic systolic heart failure ARMSTRONG (dyspnea on exertion) Dyslipidemia Essential hypertension Right heart failure Systolic dysfunction Surgical History Surgical History History of tonsillectomy Family History Family History Mother Hypertension Father Family history of malignant neoplasm Social History Social History Smoking status: Never smoker Do You Feel Safe in your Home?: Yes Lack of Transportation: No Lack of Food: Never True Current Housing: I Have Housing Concerned About Future Housing: No Difficulty Paying Gas/Electric Bills: No Difficulty Paying for Meds: No Currently Unemployed: No Education: High School Diploma/GED Difficulty w/ Childcare or Family Care: No Exam 2 Const: General: healthy appearing and no acute distress Nutritional Appearance: well nourished Orientation/consciousness: patient oriented x3 HENMT: Head: normal to inspection Neck: Neck: normal visual inspection Resp: Effort & Inspection: normal respiratory effort Auscultation: clear to auscultation bilaterally Cardio: Rate: regular rate Rhythm: regular rhythm GI: Auscultation: normal bowel sounds : General: Yes bladder normal to palpation Urinary Catheter: Urinary Catheter: patent and draining Skin: General skin exam: normal color Rashes: no rashes Wounds: no wounds Neuro: General: patient oriented x3 and moves all extremities Extrem: General: normal to inspection and no clubbing, cyanosis or edema Course Course Emergency Course: Labs reviewed with patient chest x-ray reveals infiltrate and will prescribe antibiotics for patient for pneumonia. Vital Signs Vital signs: Vital Signs Temperature 36.7 C 06/23/24 17:40 Pulse Rate 98 06/23/24 17:40 Respiratory Rate 20 06/23/24 17:40 Blood Pressure 191/95 H 06/23/24 17:40 Pulse Oximetry 94 06/23/24 17:40 Oxygen Delivery Room Air 06/23/24 17:40 Temperature 36.7 C 06/23/24 17:40 Pulse Rate 90 06/23/24 21:35 Respiratory Rate 21 H 06/23/24 21:35 Blood Pressure 151/104 H 06/23/24 21:35 Pulse Oximetry 95 06/23/24 21:34 Oxygen Delivery Room Air 06/23/24 21:35 Oxygen Flow Rate 2 06/23/24 20:48 MDM - Chest Pain Lab Data 06/23/24 18:04 06/23/24 18:04 Labs: Lab Results 06/23/24 06/23/24 06/23/24 Range/Units 18:04 18:04 18:04 WBC 7.7 (4.8-10.8) K/mm3 RBC 5.23 (4.70-6.10) M/mm3 Hgb 15.9 (14.0-18.0) g/dL Hct 47.4 (40.0-54.0) % MCV 90.6 (78.0-102.0) fL MCH 30.4 (27.0-31.0) pg MCHC 33.5 (32-36) g/dL RDW 12.9 (11.6-14.4) % Plt Count 198 (150-420) K/mm3 MPV 10.0 (8.7-11.0) fl Immature Gran % (Auto) 0.5 H (0.0-0.0) % Neut % (Auto) 65.1 (50.0-70.0) % Lymph % (Auto) 25.1 (18.0-42.0) % [place] % (Auto) 5.9 (2.0-11.0) % Eos % (Auto) 2.7 (1.0-6.0) % Baso % (Auto) 0.7 (0.0-1.0) % Lymph # (Auto) 1.93 (1.10-4.50) K/mm3 [place] # (Auto) 0.45 (0.10-0.90) K/mm3 Eos # (Auto) 0.21 (0.02-0.50) K/mm3 Baso # (Auto) 0.05 (0.00-0.10) K/mm3 Abs Immat Gran (auto) 0.04 H (0.00-0.00) K/mm3 Absolute Neuts (auto) 5.01 (1.70-7.20) K/mm3 Absolute Nucleated RBC 0.00 (0.00-0.00) K/mm3 Nucleated RBC % 0.0 (0-0.0) % PT 11.1 (9.50-12.1) Seconds INR 1.0 APTT 31.7 H (23.9-30.70) Sec D-Dimer 0.22 Cancelled (0.19-0.50) mg/L Sodium 137 (136-145) mmol/L Potassium 3.9 (3.5-5.1) mmol/L Chloride 99 (98-108) mmol/L Carbon Dioxide 29 (21-32) mmol/L Anion Gap 9 (4-12) mmol/L BUN 13 (7-18) mg/dL Creatinine 1.30 (0.70-1.30) mg/dL Estim Creat Clear Calc Not Reportable Estimated GFR 57 L (59 - ) Glucose 271 H (70-99) mg/dL Calculated Osmolality 294 (285-295) mOsm/kg Calcium 9.0 (8.5-10.1) mg/dL Total Bilirubin 0.6 (0.00-1.00) mg/dL AST 51 H (15-37) U/L ALT 121 H (16-63) U/L Alkaline Phosphatase 98 (46-116) U/L Troponin I 23.6 Cancelled (0.00-60.4) ng/L NT-Pro-B Natriuret Pep 456 H (0-125) pg/mL Total Protein 7.1 (6.4-8.2) g/dL Albumin 3.7 (3.4-5.0) g/dL Lipase 31 (16-77) U/L Influenza A (RT-PCR) Negative (Negative) Influenza B (RT-PCR) Negative (Negative) RSV (RT-PCR) Negative (Negative) SARS-CoV-2 RNA (RT-PCR) Negative (Negative) 06/23/24 Range/Units 20:36 WBC (4.8-10.8) K/mm3 RBC (4.70-6.10) M/mm3 Hgb (14.0-18.0) g/dL Hct (40.0-54.0) % MCV (78.0-102.0) fL MCH (27.0-31.0) pg MCHC (32-36) g/dL RDW (11.6-14.4) % Plt Count (150-420) K/mm3 MPV (8.7-11.0) fl Immature Gran % (Auto) (0.0-0.0) % Neut % (Auto) (50.0-70.0) % Lymph % (Auto) (18.0-42.0) % [place] % (Auto) (2.0-11.0) % Eos % (Auto) (1.0-6.0) % Baso % (Auto) (0.0-1.0) % Lymph # (Auto) (1.10-4.50) K/mm3 [place] # (Auto) (0.10-0.90) K/mm3 Eos # (Auto) (0.02-0.50) K/mm3 Baso # (Auto) (0.00-0.10) K/mm3 Abs Immat Gran (auto) (0.00-0.00) K/mm3 Absolute Neuts (auto) (1.70-7.20) K/mm3 Absolute Nucleated RBC (0.00-0.00) K/mm3 Nucleated RBC % (0-0.0) % PT (9.50-12.1) Seconds INR APTT (23.9-30.70) Sec D-Dimer (0.19-0.50) mg/L Sodium (136-145) mmol/L Potassium (3.5-5.1) mmol/L Chloride (98-108) mmol/L Carbon Dioxide (21-32) mmol/L Anion Gap (4-12) mmol/L BUN (7-18) mg/dL Creatinine (0.70-1.30) mg/dL Estim Creat Clear Calc Estimated GFR (59 - ) Glucose (70-99) mg/dL Calculated Osmolality (285-295) mOsm/kg Calcium (8.5-10.1) mg/dL Total Bilirubin (0.00-1.00) mg/dL AST (15-37) U/L ALT (16-63) U/L Alkaline Phosphatase (46-116) U/L Troponin I 22.0 (0.00-60.4) ng/L NT-Pro-B Natriuret Pep (0-125) pg/mL Total Protein (6.4-8.2) g/dL Albumin (3.4-5.0) g/dL Lipase (16-77) U/L Influenza A (RT-PCR) (Negative) Influenza B (RT-PCR) (Negative) RSV (RT-PCR) (Negative) SARS-CoV-2 RNA (RT-PCR) (Negative) Critical Care Time Critical Care Time Critical Care Time: No Discharge Plan Discharge Clinical Impression: Pneumonia Patient Disposition: Home Condition: Stable Instructions: Antibiotic Form, Bacterial Pneumonia (ED) Additional Instructions: advised patient to follow-up with primary care physician within 1 week, take medication as prescribed. Patient Language: South African Prescriptions: New levofloxacin 500 mg tablet 500 mg PO DAILY 6 Days Qty: 6 0RF prednisone 20 mg tablet 20 mg PO DAILY 6 Days Qty: 6 0RF No Action allopurinol 100 mg tablet 100 mg PO DAILY gabapentin 300 mg capsule 300 mg PO DAILY omeprazole 40 mg capsule,delayed release(DR/EC) 40 mg PO DAILY Trelegy Ellipta 100-62.5-25 mcg blister with device 1 inhalation INHALATION DAILY albuterol sulfate 0.63 mg/3 mL solution for nebulization 0.83 mg INHALATION Q6H metformin 500 mg tablet 500 mg PO DAILY pioglitazone 30 mg tablet 30 mg PO DAILY lisinopril 5 mg tablet See Rx Instructions .ROUTE .COMPLEX Qty: 90 2RF Dose Instruction: TAKE ONE TABLET BY MOUTH DAILY Rx Instructions: TAKE ONE TABLET BY MOUTH DAILY Follow-up/Referrals: Kip Martel MD [Primary Care Provider] - Stand Alone Forms: Work/School Release IP Time of Disposition: 21:26
== END 2024-06-23 21:55 | disposition home or self-care (01) ==
PROVIDERS: Emergency Provider Emergency Medicine; PCP Family Medicine
DX: J18.9 Pneumonia, unspecified organism (principal); J44.9 Chronic obstructive pulmonary disease, unspecified; I11.0 Hypertensive heart disease with heart failure; I50.9 Heart failure, unspecified; Z20.822 Contact with and (suspected) exposure to COVID-19
CPT/HCPCS: 36415; 71045; 80053; 83690; 83880; 84484; 85025; 85380; 85610; 85730; 87637; 93005; 96361; 96374; 96375; 99284; A9270; J2405; J2919; J7030

== ENCOUNTER 2024-07-23 14:49 | Outpatient (CLI) | payer BC, SELFPAY ==
--- NOTE | ~2024-07-23 | XR_ITS ---
XR chest 2V 07/23/2024 15:04 Indication: Pneumonia Procedure: 2 view chest Comparison: Comparison to multiple prior studies sequentially, with oldest reviewed study dated 12/15. Findings: Cardiomegaly. Enlarged pulmonary arteries consistent with pulmonary hypertension. Chronic i nterstitial infiltrates are present bilaterally. No pleural effusion or pneumothorax. No acute osseou s abnormality. There is atherosclerosis of the aorta. Impression: 1: Chronic bilateral interstitial infiltrates which may represent pulmonary fibrosis or chronic edema . Reviewed, dictated and finalized at location A. Impression: 1: Chronic bilateral interstitial infiltrates which may represent pulmonary fib rosis or chronic edema.
--- OUTSIDE RECORDS SUMMARY | 2024-07-23 14:52 | XMS_ITS | Clinical Summary ---
Author Organization [facility] Address [address] [place] [address] Care Team Providers Care Bead Builder Name Role Phone Kip Martel MD Primary Care Provider Source Comments [facility],non-owned Affiliates and Associated Physician Practices is amultiple site organization consisting of ambulatory clinics and hospital sitesin [place], [place], [place] and [place]. This disclosure is being madepursuant to the Care Everywhere program and may not contain all information available regarding this patient. 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 Gender Identity Not on file Sexual Orientation [...] VACCINE (1 - 2023-2 5 season) 2023 DEPRESSION SCREENING [...] patient's age to complete this topic [place] [address] Member Subscriber Plan / Payer (Ef fective 2015-Present) Name:Vladimir Louis Relation to Subscriber:Self Name:VLADIMIR LOUIS Payer ID:[id number] (NAIC) Type:[facility] Address: [facility] [address] [place] [id number] Care Teams Bead Builder Relationship Specialty Start Date End Date Kip Martel MD [address] [place] [phone] PCP - General 10/17/19
--- OUTSIDE RECORDS SUMMARY | 2024-07-23 14:52 | XMS_ITS | Referral Summary ---
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
--- OUTSIDE RECORDS SUMMARY | 2024-07-23 14:52 | XMS_ITS | CONTINUITY OF CARE DOCUMENT ---
Author Name rosario ponce Address Unknown Organization [facility] Address [address] [place] [address] Phone [phone] Care Team Providers Care Supervisor Wet End Name Role Phone rosario ponce Unavailable Unavailable INSURANCE PROVIDERS Payer name Policy type / Coverage type [place] red republican ID [facility] [id number] Other [id number]
--- OUTSIDE RECORDS SUMMARY | 2024-07-23 14:52 | XMS_ITS | Clinical Summary ---
Author Organization [facility] Address [address] [place] [address] Care Team Providers Care Cost Specialist Name Role Phone Kip Martel MD [...] History Date Comments Asthma Asthma; Comments : [facility] 01/06/2014 - Other Medical Back pain; Comm ents: [facility] 01/06/2014 - Other Medical Gastric Reflux; Comments: [facility] 01/06/2014 - Hx Other Medical Barretts syndro me; Comments: [facility] 01/06/2014 - Hx Other Medical Sarcoidosis; Co mments: [facility] 01/06/2014 - Other Medical Neuropathy hand and feet; Comments: [facility] 01/06/2014 - Hx Other Medical septic knee 201 1; Comments: [facility] 01/06/2014 - Hx Other Medical removed cyst; C omments: [facility] 01/06/2014 - Hx Other Medical removed cyst 20 10; Comments: [facility] 01/06/2014 - Hx Other Medical Insert Omer; Com ments: [facility] 01/06/2014 - Hx Other Medical Remove tonsils 1970; Comments: [facility] 01/06/2014 - Hypertension Diabetes mellitus (HCC) ADHD [...] on file 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
--- OUTSIDE RECORDS SUMMARY | 2024-07-23 14:52 | XMS_ITS | Encounter Summary ---
Author Organization [facility] Address [address] [place] [address] Care Team Providers Care Lapidarist Name Role Phone Unavailable Primary Care Provider Unavailabl e Encounter Details Date Type Department Care Team (Late st Contact Info) Description 08/21/2018 Abstract SFL CONVERSION [address] [place] [address] , Generic Conversion, Social History Tobacco Use [...]
--- OUTSIDE RECORDS SUMMARY | 2024-07-23 14:52 | XMS_ITS | Clinical Summary ---
Author Organization [facility] Address [address] [place] [address] Care Team Providers Care Music Historian Name Role Phone Unavailable Primary Care Provider [...] Td Vaccines ( 1 - Tdap) 10/14/1983 Pneumococcal Vaccine: 50+ Ye ars (1 of 1 - PCV) 2014 Zoster Vaccines (1 of 2) 2014 COVID-19 [...] patient's age to complete this topic Insurance [facility] [address] [place] [address]
== END 2024-07-23 14:50 | disposition home or self-care (01) ==
PROVIDERS: PCP Family Medicine; Visit Provider Family Medicine
DX: J18.9 Pneumonia, unspecified organism (principal); R91.8 Other nonspecific abnormal finding of lung field
CPT/HCPCS: 71046

== ENCOUNTER 2024-08-16 15:38 | Outpatient (CLI) | payer BC, SELFPAY ==
--- NOTE | ~2024-08-16 | CT_ITS ---
CT Scan of the Chest without Contrast: Clinical Indication: Lung cancer screening, nicotine dependence Technique: Contiguous sections were acquired throughout the chest without intravenous contrast. Dose reduction technique was used on this scan by utilizing automated exposure control and iterative recon struction technique. The dose-length product (DLP) was 216.40 mGy-cm. COMPARISON: 02/12/2024 Findings: There is no evidence of any significant mediastinal, hilar or axillary lymphadenopathy. Main pulmonar y artery is dilated to 4.7 cm in diameter. Coronary artery calcifications are present. There is no evidence of pleural or pericardial effusion. Extensive chronic interstitial disease is similar to prior exam. No pulmonary nodule evident. Images through the upper abdomen reveal no abnormalities. Impression: Lung RADS 2: Benign appearance. 12 month follow-up screening CT advised. Stable extensive chronic interstitial disease. Main pulmonary artery dilated to 4.7 cm. Correlate for pulmonary artery hypertension. Reviewed, dictated and finalized at [facility]. Impression: Lung RADS 2: Benign appearance. 12 month follow-up screening CT advised. Stable extensive chronic interstitial disease. Main pulmonary artery dilated to 4.7 cm. Correlate for pulmonary artery hyperte nsion.
--- OUTSIDE RECORDS SUMMARY | 2024-08-16 15:42 | XMS_ITS | Referral Summary ---
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
--- OUTSIDE RECORDS SUMMARY | 2024-08-16 15:42 | XMS_ITS | Clinical Summary ---
Author Organization [facility] Address [address] [place] [address] Care Team Providers Care Information Systems Supervisor Name Role Phone Kip Martel MD Primary [...] History Date Comments Asthma Asthma; Comments : [facility] 01/06/2014 - Other Medical Back pain; Comm ents: [facility] 01/06/2014 - Other Medical Gastric Reflux; Comments: [facility] 01/06/2014 - Hx Other Medical Barretts syndro me; Comments: [facility] 01/06/2014 - Hx Other Medical Sarcoidosis; Co mments: [facility] 01/06/2014 - Other Medical Neuropathy hand and feet; Comments: [facility] 01/06/2014 - Hx Other Medical septic knee 201 1; Comments: [facility] 01/06/2014 - Hx Other Medical removed cyst; C omments: [facility] 01/06/2014 - Hx Other Medical removed cyst 20 10; Comments: [facility] 01/06/2014 - Hx Other Medical Insert Omer; Com ments: [facility] 01/06/2014 - Hx Other Medical Remove tonsils 1970; Comments: [facility] 01/06/2014 - Hypertension Diabetes mellitus (HCC) [...] on file 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 Gender Identity Not on file Sexual Orientation [...] Covid-19 Vaccine ( season) 2023 09/21/2020, 08/25/2020 DTaP/Tdap/Td Vaccine (2 - Td or Tdap) 12/21/2023 12/20/2013 Influenza Vaccine (Season Ended) 2024 12/27/2020, 12/28/2019, 12/29/2018, Additional history exists Pneumococcal vaccine <65 Aged Out 12/20/2013, 02/13 No longer eligible based on patient's age to complete this topic Zoster Vaccine Completed 12/28/2019, 05/04/2019 Insurance BLUE ACC CHOICE OOS BLUE ACCESS OOS Care Teams Information Systems Supervisor Relationship Specialty Start Date End Date Kip Martel MD [address] [place], [place] [phone] PCP - General 01/06/14
--- OUTSIDE RECORDS SUMMARY | 2024-08-16 15:42 | XMS_ITS | CONTINUITY OF CARE DOCUMENT ---
Author Name rosario ponce Address Unknown Organization [facility] Address [address] [place] [address] Phone [phone] Care Team Providers Care Messenger Floorperson Name Role Phone rosario ponce Unavailable Unavailable INSURANCE PROVIDERS Payer name Policy type / Coverage type [place] red republican ID [facility] [id number] Other [id number]
--- OUTSIDE RECORDS SUMMARY | 2024-08-16 15:42 | XMS_ITS | Clinical Summary ---
Author Organization [facility] Address [address] [place] [address] Care Team Providers Care Home Economics Expert Name Role Phone Kip Martel MD Primary Care Provider [phone] Source Comments [facility],non-owned Affiliates and Associated Physician Practices is amultiple site organization consisting of ambulatory clinics and hospital sitesin [place], [place], [place] and [place]. This disclosure is being madepursuant to the Care Everywhere program and may not contain all information available regarding this patient. 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 [id number] [place] [id number] Care Teams Home Economics Expert Relationship Specialty Start Date End Date Kip Martel MD [address] [place] [phone] PCP - General 10/17/19
--- NOTE | 2024-08-16 15:43 | ECHO_ITS ---
Patient Info Name: Vladimir Louis Age: 58 years : 1965 Gender: Male Ht: 68 in Wt: 229 lbs BSA: 2.27 m2 HR: 95 bpm BP: 160 / 98 mmHg Technical Quality: Poor Exam Date: 08/16/2024 4:08 PM Patient Status: O Admit Date: 08/16/2024 Exam Type: CA echo doppler color flow Complete two-dimensional, color flow and Doppler transthoracic echocardiogram is performed. Staff Referring Physician: Torrey Gallegos Supervisor Vegetable Farming: Radha Davis Attending Provider: Torrey Gallegos Reason for Poor Study: poor echocardiographic windows Summary 1. Complete two-dimensional, color flow and Doppler transthoracic echocardiogram is performed. 2. Left ventricular chamber dimension is normal. 3. D shape interventricular septum during systole suggests RV pressure overload. 4. There is mild concentric increased left ventricular wall thickness. 5. Left ventricular septal wall motion is abnormal with septal motion related to bundle branch block. 6. Left ventricular systolic function is normal, estimated at 55-60. 7. The left ventricular diastolic function is normal. 8. E/e' 5 is not elevated. 9. Right ventricular systolic function is severely reduced. 10. Right ventricular chamber dimension is severely enlarged. 11. Right atrial chamber dimension is moderately enlarged. 12. There is mild aortic valve sclerosis. 13. There is mild tricuspid valve regurgitation. 14. Severe pulmonary hypertension, estimated pulmonary arterial systolic pressure is 72 mmHg. 15. There is trace pulmonic regurgitation. 16. Dilated inferior vena cava with >50% collapse upon inspiration consistent with elevated right atrial pressure, 10 mmHg. Left Ventricle E/e' 5 is not elevated. Left ventricular chamber dimension is normal. Left ventricular systolic function is normal, estimated at 55-60. There is mild concentric increased left ventricular wall thickness. Left ventricular septal wall motion is abnormal with septal motion related to bundle branch block. The left ventricular diastolic function is normal. D shape interventricular septum during systole suggests RV pressure overload. Right Ventricle Right ventricular chamber dimension is severely enlarged. Right ventricular systolic function is severely reduced. Left Atria Left atrial chamber dimension is normal. Right Atria Right atrial chamber dimension is moderately enlarged. Aortic Valve The aortic valve is trileaflet. There is mild aortic valve sclerosis. There is no aortic valve stenosis. There is no aortic valve regurgitation. Pulmonic Valve There is trace pulmonic regurgitation. Mitral Valve There is no mitral valve stenosis. There is no mitral valve regurgitation. Tricuspid Valve There is mild tricuspid valve regurgitation. Severe pulmonary hypertension, estimated pulmonary arterial systolic pressure is 72 mmHg. Pericardium/Pleural There is no pericardial effusion. Inferior Vena Cava Dilated inferior vena cava with >50% collapse upon inspiration consistent with elevated right atrial pressure, 10 mmHg. Aorta The aortic root size at the sinus of Valsalva is normal. Left Ventricular Outflow Tract Name Value Normal LVOT 2D LVOT Diameter 1.9 cm LVOT Doppler LVOT Peak Velocity 113 cm/s LVOT Peak Gradient 5 mmHg LVOT Mean Gradient 2 mmHg LVOT VTI 17 cm LVOT VTI/AV VTI Ratio 0.9 LVOT Stroke Volume 49 ml LVOT CO 4.5 l/min LVOT CI 2.0 l/min/m2 Pulmonic Valve Name Value Normal PV Doppler PV Peak Velocity 78 cm/s PV Peak Gradient 2 mmHg Mitral Valve Name Value Normal MV Doppler MV Peak Gradient 3 mmHg MV Mean Gradient 1 mmHg MV Area (Cont Eq VTI) 2.7 cm2 MV Diastolic Function MV E Peak Velocity 59 cm/s MV A Peak Velocity 80 cm/s MV E/A 0.7 MV Decel Time (PW) 163 ms MV Annular TDI MV E/e' (Septal) 6.5 MV E/e' (Lateral) 5.3 MV E/e' (Average) 5.9 Tricuspid Valve Name Value Normal TV Regurgitation Doppler TR Peak Velocity 395 cm/s TR Peak Gradient 62 mmHg Estimated PAP/RSVP RA Pressure 10 mmHg <=5 PA Systolic Pressure 72 mmHg <36 RV Systolic Pressure 72 mmHg <36 TV Annular TDI TV Lateral Khadijah s' Velocity 7.7 cm/s >=9.5 Aortic Valve Name Value Normal AV Doppler AV Peak Velocity 141 cm/s AV Peak Gradient 8 mmHg AV Mean Gradient 4 mmHg AV VTI 18 cm AV Area (Cont Eq VTI) 2.6 cm2 >=3.0 AV Area (Cont Eq Reza) 2.3 cm2 AV DI (Reza) 0.80 AV Regurgitation 2D LVOT Area 2.8 cm2 Ventricles Name Value Normal LV Dimensions 2D/MM IVS Diastolic Thickness (2D) 1.0 cm 0.6-1.0 LVID Diastole (2D) 4.1 cm 4.2-5.8 LVIW Diastolic Thickness (2D) 0.9 cm 0.6-1.0 LVID Systole (2D) 3.0 cm 2.5-4.0 LVOT Diameter 1.9 cm LV Mass (2D Cubed) 121.18 g 88.00-224.00 LV Mass Index (2D Cubed) 53 g/m2 49-115 Relative Wall Thickness (2D) 0.44 <=0.42 LV Fractional Shortening/Ejection Fraction 2D/MM LV Fractional Shortening (2D) 27 % 25-43 LV EF (2D Teichholz) 54 % LV Diastolic Volume (4C MOD) 64 ml LV EF (4C MOD) 58 % LV Diastolic Length (4C) 7.5 cm LV Systolic Length (4C) 6.0 cm LV Stroke Volume (4C MOD) 37 ml Atria Name Value Normal LA Dimensions LA Volume (4C A-L) 23 ml LA Volume (BP A-L) 24 ml RA Dimensions RA Systolic Major [place] Length (4C) 4.7 cm 2.1-2.7 RA Area (4C) 18.8 cm2 <=18.0 Report Signatures
== END 2024-08-16 15:39 | disposition home or self-care (01) ==
PROVIDERS: PCP Family Medicine; Visit Provider Internal Medicine Pulmonary Disease
DX: J44.9 Chronic obstructive pulmonary disease, unspecified (principal); Z87.891 Personal history of nicotine dependence; D86.0 Sarcoidosis of lung; J84.9 Interstitial pulmonary disease, unspecified; I27.20 Pulmonary hypertension, unspecified; I08.2 Rheumatic disorders of both aortic and tricuspid valves
CPT/HCPCS: 71271; 93306

== ENCOUNTER 2024-08-25 15:31 | Outpatient (CLI) | payer BC, SELFPAY ==
--- NOTE | ~2024-08-25 | NM_ITS ---
EXAMINATION: NM lung vent and perfusion DATE: 08/25/2024 16:28 INDICATION: Pulmonary sarcoidosis. Primary pulmonary hypertension. TECHNIQUE: 36.3 mCi Tc-99m DTPA by inhalation and 5.4 mCi Tc-99m MAA by intravenous route. Scintigra phic images of the chest were obtained. COMPARISON: CT dated 08/16/2024 FINDINGS: There is a matched photopenic defect in the posterior right midlung zone on both the ventilation and perfusion images which corresponds to a hyperlucent region of air trapping on the prior CT. Similarly there is oblique band of magic ventilation and perfusion defects in the left midlung zone also with corresponding degenerative hyperlucent air trapping on prior CT. No discrete ventilation and perfusio n mismatch is identified. IMPRESSION: 1. Low probability for pulmonary embolism. Reviewed, dictated and finalized at location A.
--- NOTE | ~2024-08-25 | XR_ITS ---
Clinical Indication: NM PA and lateral views of the chest: Comparison: 07/23/2024 Findings: Stable prominence of the hilar structures bilaterally. There is probable diffuse interstiti al disease in the lungs.. Bones and soft tissues are unremarkable. Impression: Diffuse chronic interstitial disease. Stable prominence of the hilar structures, suggestive of pulmonary artery hypertension. Reviewed, dictated and finalized at location . Impression: Diffuse chronic interstitial disease. Stable prominence of the hilar structures, suggestive of pulmonary artery hyper tension.
--- OUTSIDE RECORDS SUMMARY | 2024-08-25 15:55 | XMS_ITS | Referral Summary ---
Author Organization 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
--- OUTSIDE RECORDS SUMMARY | 2024-08-25 15:55 | XMS_ITS | Clinical Summary ---
Author Organization [facility] Address [address] [facility] [place] [place] [address] Care Team Providers Care Lift Electrician Name Role Phone Kip Martel MD Primary Care Provider Source Comments [facility],non-owned Affiliates and Associated Physician Practices is amultiple site organization consisting of ambulatory clinics and hospital sitesin [place], [place], [place] and [place]. This disclosure is being madepursuant to the Care Everywhere program and may not contain all information available regarding this patient. 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
--- OUTSIDE RECORDS SUMMARY | 2024-08-25 15:56 | XMS_ITS | Clinical Summary ---
Author Organization [facility] Address [address] [place] [address] Care Team Providers Care Lead Etl Developer Name Role Phone Kip Martel MD Primary [...] History Date Comments Asthma Asthma; Comments : [facility] 01/06/2014 - Other Medical Back pain; Comm ents: [facility] 01/06/2014 - Other Medical Gastric Reflux; Comments: [facility] 01/06/2014 - Hx Other Medical Barretts syndro me; Comments: [facility] 01/06/2014 - Hx Other Medical Sarcoidosis; Co mments: [facility] 01/06/2014 - Other Medical Neuropathy hand and feet; Comments: [facility] 01/06/2014 - Hx Other Medical septic knee 201 1; Comments: [facility] 01/06/2014 - Hx Other Medical removed cyst; C omments: [facility] 01/06/2014 - Hx Other Medical removed cyst 20 10; Comments: [facility] 01/06/2014 - Hx Other Medical Insert Omer; Com ments: [facility] 01/06/2014 - Hx Other Medical Remove tonsils 1970; Comments: [facility] 01/06/2014 - Hypertension Diabetes mellitus [...] on file 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
== END 2024-08-25 15:32 | disposition home or self-care (01) ==
PROVIDERS: PCP Family Medicine; Visit Provider Internal Medicine Pulmonary Disease
DX: I27.0 Primary pulmonary hypertension (principal); J84.9 Interstitial pulmonary disease, unspecified
CPT/HCPCS: 71046; 78582; A9567; A9540

== ENCOUNTER 2024-08-26 15:38 | Outpatient (CLI) | payer BC, SELFPAY ==
[2024-08-26] VITALS (7 sets, daily range): PULSE 99–113; O2SAT 87–91
--- OUTSIDE RECORDS SUMMARY | 2024-08-26 15:43 | XMS_ITS | Clinical Summary ---
Author Organization [facility] Address [address] [facility] [place] [address] Care Team Providers Care Housekeeping Supervisor Name Role Phone Kip Martel MD Primary Care Provider [phone] Source Comments [facility],non-owned Affiliates and Associated Physician Practices is amultiple site organization consisting of ambulatory clinics and hospital sitesin [place], [place] and [place]. This disclosure is being madepursuant to the Care Everywhere program and may not contain all information available regarding this patient. 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
--- OUTSIDE RECORDS SUMMARY | 2024-08-26 15:43 | XMS_ITS | Referral Summary ---
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
--- OUTSIDE RECORDS SUMMARY | 2024-08-26 15:43 | XMS_ITS | Clinical Summary ---
Author Organization [facility] Address [address] [place] [address] Care Team Providers Care Waste Disposal Attendant Name Role Phone Kip Martel MD Primary [...] History Date Comments Asthma Asthma; Comments : [facility] 01/06/2014 - Other Medical Back pain; Comm ents: [facility] 01/06/2014 - Other Medical Gastric Reflux; Comments: [facility] 01/06/2014 - Hx Other Medical Barretts syndro me; Comments: [facility] 01/06/2014 - Hx Other Medical Sarcoidosis; Co mments: [facility] 01/06/2014 - Other Medical Neuropathy hand and feet; Comments: [facility] 01/06/2014 - Hx Other Medical septic knee 201 1; Comments: [facility] 01/06/2014 - Hx Other Medical removed cyst; C omments: [facility] 01/06/2014 - Hx Other Medical removed cyst 20 10; Comments: [facility] 01/06/2014 - Hx Other Medical Insert Omer; Com ments: [facility] 01/06/2014 - Hx Other Medical Remove tonsils 1970; Comments: [facility] 01/06/2014 - Hypertension Diabetes mellitus (HCC) ADHD [...] on file 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
--- NOTE | 2024-08-26 16:39 | PCRCNOTE ---
Outpatient 6MWT
--- NOTE | 2024-08-26 16:54 | RCSIXMIN ---
Six Minute Walk RC: Six Minute Walk Start: 08/26/24 16:41 Freq: Status: Active Protocol: Activity Type Activity Date Activity User E-sign Co-sign Detail Recorded Client Recorded Date Recorded By Document 08/26/24 15:45 [facility] [id number] 08/26/24 16:54 [facility] Document 08/26/24 15:45 [facility] [id number] 08/26/24 16:54 [facility] Document 08/26/24 15:46 [facility] [id number] 08/26/24 16:54 [facility] Document 08/26/24 15:47 [facility] [id number] 08/26/24 16:54 [facility] Document 08/26/24 15:48 [facility] [id number] 08/26/24 16:54 [facility] Document 08/26/24 15:49 [facility] [id number] 08/26/24 16:54 [facility] Document 08/26/24 15:50 [facility] [id number] 08/26/24 16:54 [facility] Document 08/26/24 15:51 [facility] [id number] 08/26/24 16:54 [facility] 08/26/24 08/26/24 08/26/24 15:45 15:45 15:46 Six Minute Walk Test Phase Resting Exercise Exercise Oxygen Delivery Room Air Nasal Cannula Nasal Cannula Oxygen Flow Rate (L/min) 1 2 Pulse Oximetry (90-100 %) 87 L 88 L 90 Pulse Rate (60-100 beats/min) 99 101 H 101 H Activity Tolerance Fair Fair Fair Rating of Perceived Dyspnea (PD) +1 Mild, +1 Mild, +1 Mild, Noticeable to Noticeable to Noticeable to the Participant the Participant the Participant but Not to an but Not to an but Not to an Observer Observer Observer Rate of Perceived Exertion (PE) 9 Very light 9 Very light 9 Very light Ambulation Distance (feet) 0 0 0 Ambulation Distance (meters) 0 0 0 Six Minute Walk Comments increased to 1l increased to 2l walking /m o2 /m initiated Charge Six Minute Walk 08/26/24 08/26/24 08/26/24 15:47 15:48 15:49 Six Minute Walk Test Phase Exercise Exercise Exercise Oxygen Delivery Nasal Cannula Nasal Cannula Nasal Cannula Oxygen Flow Rate (L/min) 2 3 3 Pulse Oximetry (90-100 %) 88 L 90 91 Pulse Rate (60-100 beats/min) 111 H 110 H 112 H Activity Tolerance Fair Fair Fair Rating of Perceived Dyspnea (PD) +2 Mild, Some +2 Mild, Some +2 Mild, Some Difficulty, Difficulty, Difficulty, Noticeable to Noticeable to Noticeable to the Observer the Observer the Observer Rate of Perceived Exertion (PE) 11 Fairly light 11 Fairly light 11 Fairly light Ambulation Distance (feet) 100 266 355 Ambulation Distance (meters) 30.47 81.07 108.19 Six Minute Walk Comments increased to 3l /m Charge 08/26/24 08/26/24 15:50 15:51 Six Minute Walk Test Phase Exercise Exercise Oxygen Delivery Nasal Cannula Nasal Cannula Oxygen Flow Rate (L/min) 3 3 Pulse Oximetry (90-100 %) 90 90 Pulse Rate (60-100 beats/min) 111 H 113 H Activity Tolerance Fair Fair Rating of Perceived Dyspnea (PD) +2 Mild, Some +2 Mild, Some Difficulty, Difficulty, Noticeable to Noticeable to the Observer the Observer Rate of Perceived Exertion (PE) 11 Fairly light 11 Fairly light Ambulation Distance (feet) 445 535 Ambulation Distance (meters) 135.62 163.06 Six Minute Walk Comments Pt. completes 6MWT. Pt qualifies for 3l/m with activity. Charge Pt. ambulates 535ft total requiring 3l/m with activity to keep SPo2 level above 88%. See above qualifying data. Unable to determine needs at [facility]. Message left with ordering MD to update on condition. Pt. reports [employer] as his homecare company.
== END 2024-08-26 15:39 | disposition home or self-care (01) ==
PROVIDERS: PCP Family Medicine
DX: I27.0 Primary pulmonary hypertension (principal)
CPT/HCPCS: 94618

== ENCOUNTER 2024-09-30 08:49 | Outpatient (CLI) | payer BC, SELFPAY ==
--- OUTSIDE RECORDS SUMMARY | 2024-09-30 08:53 | XMS_ITS | Clinical Summary ---
Author Organization [facility] Address [address] [place] [address] Care Team Providers Care Wet Machine Cutter Name Role Phone Kip Martel MD Primary [...] History Date Comments Asthma Asthma; Comments : [facility] 01/06/2014 - Other Medical Back pain; Comm ents: [facility] 01/06/2014 - Other Medical Gastric Reflux; Comments: [facility] 01/06/2014 - Hx Other Medical Barretts syndro me; Comments: [facility] 01/06/2014 - Hx Other Medical Sarcoidosis; Co mments: [facility] 01/06/2014 - Other Medical Neuropathy hand and feet; Comments: [facility] 01/06/2014 - Hx Other Medical septic knee 201 1; Comments: [facility] 01/06/2014 - Hx Other Medical removed cyst; C omments: [facility] 01/06/2014 - Hx Other Medical removed cyst 20 10; Comments: [facility] 01/06/2014 - Hx Other Medical Insert Omer; Com ments: [facility] 01/06/2014 - Hx Other Medical Remove tonsils 1970; Comments: [facility] 01/06/2014 - Hypertension Diabetes mellitus (HCC) ADHD [...] on file 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
--- OUTSIDE RECORDS SUMMARY | 2024-09-30 08:53 | XMS_ITS | Clinical Summary ---
Author Organization [facility] Address [address] [place] [address] Care Team Providers Care Dictating Machine Typist Name Role Phone Unavailable Primary Care Provider [...] patient's age to complete this topic Insurance [facility] [address] [place] [address]
--- OUTSIDE RECORDS SUMMARY | 2024-09-30 08:53 | XMS_ITS | Clinical Summary ---
Author Organization [facility] Address [address] [facility] [place] [address] Care Team Providers Care Director Economic Name Role Phone Kip Martel MD Primary Care Provider [phone] Source Comments [facility],non-owned Affiliates and Associated Physician Practices is amultiple site organization consisting of ambulatory clinics and hospital sitesin [place], [place], [place]. This disclosure is being madepursuant to the Care Everywhere program and may not contain all information available regarding this patient. 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 Gender Identity Not on file Sexual Orientation [...] season) 2023 DEPRESSION SCREENING 03/16/2024 INFLUENZA VACCINE (#1) 2024 03/02/2012 HIB VACCINE Aged Out No longer eligi [...] patient's age to complete this topic [place] [address] Member Subscriber Plan / Payer (Ef fective 2015-Present) Name:Vladimir Louis Relation to Subscriber:Self Name:VLADIMIR LOUIS Payer ID:[id number] (NAIC) Type:[facility] Address: [facility] [id number] [place] [id number] Care Teams Director Economic Relationship Specialty Start Date End Date Kip Martel MD [address] [place] [phone] PCP - General 10/17/19
--- OUTSIDE RECORDS SUMMARY | 2024-09-30 08:53 | XMS_ITS | Encounter Summary ---
Author Organization [facility] Address [facility] [place] [address] Care Team Providers Care Business Support Administrator Name Role Phone Unavailable Primary Care Provider Unavailabl e Encounter Details Date Type Department Care Team (Late st Contact Info) Description 08/21/2018 Abstract [facility] CONVERSION [address] [address] , Generic Conversion, Social History Tobacco Use [...]
--- OUTSIDE RECORDS SUMMARY | 2024-09-30 08:53 | XMS_ITS | Referral Summary ---
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
[2024-09-30 09:07] LABS: Hematocrit 51.7 % (40.0-54.0); Hemoglobin 17.3 g/dL (14.0-18.0); Immature Granulocyte Percent A 0.5 % (0.0-0.0); Lymphocytes Absolute Auto 1.98 K/mm3 (1.10-4.50); Mean Corpuscular HGB Conc 33.5 g/dL (32-36); Mean Corpuscular Hemoglobin 30.2 pg (27.0-31.0); Mean Corpuscular Volume 90.4 fL (78.0-102.0); Nucleated Red Blood Cells Absolute Auto 0.00 K/mm3 (0.00-0.00); Nucleated Red Blood Cells Perc 0.0 % (0-0.0); Platelet Count Result 213 K/mm3 (150-420); Red Blood Count 5.72 M/mm3 (4.70-6.10); White Blood Count 8.1 K/mm3 (4.8-10.8)
[2024-09-30 09:17] LABS: Hemoglobin A1C 7.7 % (<5.7)
[2024-09-30 09:58] LABS: Alanine Aminotransferase 84 U/L (6-50); Albumin Level 4.1 g/dL (3.5-5.1); Alkaline Phosphatase 78 U/L (38-126); Anion Gap 4 mmol/L (4-12); Aspartate Amino Transferase 53 U/L (17-59); Bilirubin,Total 0.9 mg/dL (0.2-1.3); Blood Urea Nitrogen 16 mg/dL (9-20); Calcium 8.8 mg/dL (8.4-10.2); Carbon Dioxide 29 mmol/L (22-30); Chloride 106 mmol/L (98-107); Estimated Glomerular Filt Rate > 60; Glucose 140 mg/dL (65-110); Osmolality Calculated 291 mOsm/kg (285-295); Potassium 4.6 mmol/L (3.4-5.0); Sodium 139 mmol/L (137-145); Total Protein 6.9 g/dL (6.3-8.2)
[2024-09-30 10:28] LABS: Thyroid Stimulating Hormone 1.700 uIU/mL (0.465-4.680)
== END 2024-09-30 08:50 | disposition home or self-care (01) ==
LOC: CHSLAB 08:50
PROVIDERS: PCP Family Medicine; Visit Provider Family Medicine
DX: E11.9 Type 2 diabetes mellitus without complications (principal)
CPT/HCPCS: 36415; 80053; 83036; 84443; 85025